=== PATIENT | male | born 1950 | race African-American/Black ===

== ENCOUNTER 2020-04-08 10:01 | Inpatient (IN) ==
[2020-04-08 10:24] LABS: Basophils % 0.3 % (0.0-0.8); Eosinophils # 0.2 10*3/uL (0.0-0.87); Eosinophils % 2.1 % (0.00-10.9); Hematocrit 33.2 VOL% (42.0-52.0); Hemoglobin 11.1 GM/DL (14.0-18.0); Immature Granulocytes % 0.5 %; Immature Granulocytes Absolute 0.06 #; Lymphocytes # 1.8 10*3/uL (1.4-4.0); Lymphocytes % 15.8 % (21.2-54.2); Mean Corpuscular HGB Conc 33.4 GM/DL (32-36); Mean Corpuscular Volume 78.9 FL (87-102); Mean Platelet Volume 10.7 FL (9.6-12.0); Monocytes % 12.7 % (1.7-12.7); Neutrophils % 68.6 % (38.7-73.9); Platelet Count 167 T/CUMM (130-400); Red Blood Count 4.21 MC/CUMM (3.8-5.5); Red Cell Distribution Width 14.6 % (9.3-17.3); White Blood Count 11.5 T/CUMM (4-12)
[2020-04-08 10:45] LABS: Albumin 3.3 G/DL (3.4-5.0); Calcium 9.1 MG/DL (8.5-10.1); Osmolality,Calculated 284.7 MOS/KG (273-304); Total Protein 7.6 G/DL (6.4-8.3)
[2020-04-08] MEDS ORDERED: PIPERACILLIN/TAZOBACTAM 3,375 MG in SODIUM CHLORIDE 0.9% 100 ML IV STA (11:40)
[2020-04-08] MEDS ORDERED: ALBUTEROL 2.5 MG/3 ML NEB RESP TX PRN (13:47)
[2020-04-08] MEDS ORDERED: BENZONATATE 100 MG CAPSULE PO SCH (15:00)
[2020-04-08] MEDS ORDERED: GLUCAGON 1 MG VIAL IM PRN (15:34)
[2020-04-08] MEDS ORDERED: DEXTROSE 50% 25 GM/50 ML VIAL IV PRN (15:34)
[2020-04-08] MEDS: cefTRIAXone 1,000 MG in SYRINGE 1 EACH IV SCH (15:53)
[2020-04-08] MEDS: methylPREDNISolone SOD SUC 40 MG/1 ML VIAL IV SCH ×2 (15:59→23:55)
[2020-04-08 16:29] LABS: Troponin I 0.043 NG/ML (0.00-0.045)
[2020-04-08] MEDS: carvediloL 25 MG TABLET PO SCH (17:07)
[2020-04-08] MEDS: AZITHROMYCIN INJ 500 MG in SODIUM CHLORIDE 0.9% 250 ML IV SCH (17:08)
[2020-04-08] MEDS ORDERED: NITROGLYCERIN SL 0.4 MG TABLET SL ONE (18:06)
[2020-04-08] MEDS: NITROGLYCERIN SL 0.4 MG TABLET SL PRN ×2 (18:07→18:17)
[2020-04-08] MEDS ORDERED: ASPIRIN EC 325 MG TABLET PO ONE (18:07)
[2020-04-08] MEDS ORDERED: ASPIRIN CHEW 81 MG TABLET PO ONE (18:11)
[2020-04-08] MEDS ORDERED: MORPHINE 4 MG/1 ML VIAL IV PRN (18:11)
[2020-04-08] MEDS: ALBUTEROL/IPRATROPIUM 3 ML NEB RESP TX SCH (18:15)
[2020-04-08] MEDS ORDERED: ACETAMINOPHEN 325 MG TABLET PO PRN (18:41)
[2020-04-08] MEDS ORDERED: ONDANSETRON 4 MG/2 ML VIAL IV PRN (18:41)
[2020-04-08 18:54] LABS: Troponin I 0.026 NG/ML (0.00-0.045)
[2020-04-08] MEDS ORDERED: METOPROLOL TARTRATE 5 MG/5 ML VIAL IV ONE (18:55)
[2020-04-08 18:58] LABS: ABG Base Excess -4.9 MMOL/L (-2.5-2.5); ABG HCO3 20.3 MMOL/L (20-26); ABG Oxygen Saturation 96.8 % (95-100); ABG PCO2 35.8 MM HG (35-48); ABG PH 7.355 (7.35-7.45); ABG PO2 90.8 MM HG (80-95); ABG TCO2 17.9 MMOL/L (23-27); Allen Test Positive; Pt O2 Delivery Device BIPAP
[2020-04-08] MEDS ORDERED: ENOXAPARIN 40 MG/0.4 ML SYRINGE SUBCUT SCH (19:00)
[2020-04-08] MEDS ORDERED: CLOPIDOGREL 300 MG TABLET PO ONE (19:01)
[2020-04-08 19:07] LABS: Ferritin 241.4 ng/ml (26-388)
[2020-04-08] MEDS ORDERED: ENOXAPARIN 100 MG/ML SYRINGE SUBCUT SCH (19:30)
[2020-04-08 19:51] LABS: Bilirubin,Urine Negative (Negative); Blood, Urine Negative (Negative); Glucose,Urine (UA) Negative (Negative); Ketones,Urine Negative (Negative); Nitrite,Urine Negative (Negative); Protein,Urine Negative; RBC,Urine 1 /HPF (0-4); Urine Appearance CLEAR (Clear); Urine Color Yellow (Yellow); Urine Specific Gravity 1.008 (1.001-1.035); Urine Urobilinogen < 2.0 EU/DL (0.2-1.0); WBC,Urine <1 /HPF (0-6)
[2020-04-08] MEDS ORDERED: TERAZOSIN 1 MG CAPSULE PO SCH (21:00)
[2020-04-08] MEDS ORDERED: ATORVASTATIN 40 MG TABLET PO SCH (21:00)
[2020-04-08] MEDS ORDERED: FAMOTIDINE 20 MG TABLET PO SCH (21:00)
[2020-04-08] MEDS ORDERED: TERAZOSIN 2 MG CAPSULE PO SCH (21:00)
[2020-04-08] MEDS: RANOLAZINE 500 MG TABLET PO SCH (21:26)
[2020-04-08] MEDS: ATORVASTATIN 80 MG TABLET PO SCH (21:26)
[2020-04-08 22:41] LABS: Troponin I 0.495 NG/ML (0.00-0.045)
[2020-04-09] MEDS: INSULIN LISPRO 100 UNIT/ML SUBCUT SCH ×5 (00:40→23:59)
[2020-04-09] MEDS: ALBUTEROL/IPRATROPIUM 3 ML NEB RESP TX SCH ×4 (01:09→19:17)
[2020-04-09 05:26] LABS: Basophils % 0.1 % (0.0-0.8); Hematocrit 32.1 VOL% (42.0-52.0); Hemoglobin 10.7 GM/DL (14.0-18.0); Immature Granulocytes % 0.4 %; Immature Granulocytes Absolute 0.04 #; Lymphocytes # 0.9 10*3/uL (1.4-4.0); Mean Corpuscular HGB Conc 33.3 GM/DL (32-36); Mean Corpuscular Volume 78.9 FL (87-102); Mean Platelet Volume 12.2 FL (9.6-12.0); Monocytes % 1.7 % (1.7-12.7); Neutrophils % 87.8 % (38.7-73.9); Platelet Count 179 T/CUMM (130-400); Red Blood Count 4.07 MC/CUMM (3.8-5.5); Red Cell Distribution Width 14.5 % (9.3-17.3); White Blood Count 9.2 T/CUMM (4-12)
[2020-04-09 05:50] LABS: Albumin 2.6 G/DL (3.4-5.0); Bilirubin,Total 0.7 MG/DL (0.2-1.0); Calcium 9.2 MG/DL (8.5-10.1); Osmolality,Calculated 282.2 MOS/KG (273-304); Total Protein 7.7 G/DL (6.4-8.3)
[2020-04-09 05:55] LABS: Risk Ratio 2.54
[2020-04-09] MEDS: methylPREDNISolone SOD SUC 40 MG/1 ML VIAL IV SCH ×3 (06:04→22:23)
[2020-04-09] MEDS: carvediloL 25 MG TABLET PO SCH ×2 (08:56→16:03)
[2020-04-09] MEDS: FAMOTIDINE 20 MG TABLET PO SCH (08:57)
[2020-04-09] MEDS: ASPIRIN EC 81 MG TABLET PO SCH (08:57)
[2020-04-09] MEDS: ISOSORBIDE MONONITRATE 30 MG TABLET PO SCH (08:57)
[2020-04-09] MEDS: CLOPIDOGREL 75 MG TABLET PO SCH (08:57)
[2020-04-09] MEDS: allopurinoL 100 MG TABLET PO SCH (08:58)
[2020-04-09] MEDS ORDERED: glyBURIDE 5 MG TABLET PO SCH (09:00)
[2020-04-09] MEDS ORDERED: sitaGLIPtin 100 MG TABLET PO SCH (09:00)
[2020-04-09] MEDS: RANOLAZINE 500 MG TABLET PO SCH ×2 (10:22→21:40)
[2020-04-09] MEDS: cilostazoL 50 MG TABLET PO SCH (10:22)
[2020-04-09] MEDS ORDERED: FUROSEMIDE 40 MG TABLET PO ONE (11:09)
[2020-04-09] MEDS: cefTRIAXone 1,000 MG in SYRINGE 1 EACH IV SCH (16:03)
[2020-04-09] MEDS: AZITHROMYCIN INJ 500 MG in SODIUM CHLORIDE 0.9% 250 ML IV SCH (16:10)
[2020-04-09] MEDS: TERAZOSIN 1 MG CAPSULE PO SCH (21:40)
[2020-04-09] MEDS: ATORVASTATIN 80 MG TABLET PO SCH (21:41)
[2020-04-10] MEDS: ALBUTEROL/IPRATROPIUM 3 ML NEB RESP TX SCH ×4 (00:38→19:37)
[2020-04-10 05:14] LABS: Basophils % 0.1 % (0.0-0.8); Hematocrit 29.4 VOL% (42.0-52.0); Hemoglobin 9.9 GM/DL (14.0-18.0); Immature Granulocytes % 0.7 %; Immature Granulocytes Absolute 0.13 #; Lymphocytes % 5.7 % (21.2-54.2); Mean Corpuscular HGB Conc 33.7 GM/DL (32-36); Mean Corpuscular Volume 78.4 FL (87-102); Mean Platelet Volume 11.9 FL (9.6-12.0); Monocytes % 3.7 % (1.7-12.7); Neutrophils % 89.8 % (38.7-73.9); Platelet Count 203 T/CUMM (130-400); Red Blood Count 3.75 MC/CUMM (3.8-5.5); Red Cell Distribution Width 14.4 % (9.3-17.3); White Blood Count 17.4 T/CUMM (4-12)
[2020-04-10 05:34] LABS: Albumin 2.6 G/DL (3.4-5.0); Bilirubin,Total 0.4 MG/DL (0.2-1.0); Osmolality,Calculated 289.4 MOS/KG (273-304); Total Protein 7.3 G/DL (6.4-8.3)
[2020-04-10 05:38] LABS: Osmolality,Calculated 289.4 MOS/KG (273-304)
[2020-04-10] MEDS: INSULIN LISPRO 100 UNIT/ML SUBCUT SCH ×3 (05:57→17:18)
[2020-04-10] MEDS: methylPREDNISolone SOD SUC 40 MG/1 ML VIAL IV SCH ×3 (06:01→23:27)
[2020-04-10] MEDS: CLOPIDOGREL 75 MG TABLET PO SCH (08:27)
[2020-04-10] MEDS: allopurinoL 100 MG TABLET PO SCH (08:27)
[2020-04-10] MEDS: FAMOTIDINE 20 MG TABLET PO SCH (08:28)
[2020-04-10] MEDS: FUROSEMIDE 40 MG TABLET PO SCH (08:28)
[2020-04-10] MEDS: ISOSORBIDE MONONITRATE 30 MG TABLET PO SCH (08:28)
[2020-04-10] MEDS: AZITHROMYCIN 250 MG TABLET PO SCH (08:28)
[2020-04-10] MEDS: carvediloL 25 MG TABLET PO SCH ×2 (08:29→16:01)
[2020-04-10] MEDS: RANOLAZINE 500 MG TABLET PO SCH ×2 (08:29→20:37)
[2020-04-10] MEDS: ASPIRIN EC 81 MG TABLET PO SCH (08:29)
[2020-04-10] MEDS: cilostazoL 50 MG TABLET PO SCH (08:29)
[2020-04-10] MEDS: cefTRIAXone 1,000 MG in SYRINGE 1 EACH IV SCH (15:58)
[2020-04-10] MEDS: TERAZOSIN 1 MG CAPSULE PO SCH (20:37)
[2020-04-10] MEDS: ATORVASTATIN 80 MG TABLET PO SCH (20:37)
[2020-04-11] MEDS: INSULIN LISPRO 100 UNIT/ML SUBCUT SCH ×4 (00:30→17:24)
[2020-04-11] MEDS: ALBUTEROL/IPRATROPIUM 3 ML NEB RESP TX SCH ×4 (02:42→19:26)
[2020-04-11 05:47] LABS: Basophils % 0.1 % (0.0-0.8); Hematocrit 31.3 VOL% (42.0-52.0); Hemoglobin 10.4 GM/DL (14.0-18.0); Immature Granulocytes % 0.8 %; Immature Granulocytes Absolute 0.11 #; Lymphocytes # 0.6 10*3/uL (1.4-4.0); Lymphocytes % 4.7 % (21.2-54.2); Mean Corpuscular HGB Conc 33.2 GM/DL (32-36); Mean Corpuscular Volume 77.9 FL (87-102); Mean Platelet Volume 12.2 FL (9.6-12.0); Monocytes % 3.3 % (1.7-12.7); Neutrophils % 91.1 % (38.7-73.9); Platelet Count 217 T/CUMM (130-400); Red Blood Count 4.02 MC/CUMM (3.8-5.5); Red Cell Distribution Width 14.4 % (9.3-17.3); White Blood Count 13.4 T/CUMM (4-12)
[2020-04-11] MEDS: methylPREDNISolone SOD SUC 40 MG/1 ML VIAL IV SCH ×2 (05:50→14:48)
[2020-04-11 06:08] LABS: Alanine Aminotransferase 19 U/L (16-61); Albumin 2.7 G/DL (3.4-5.0); Alkaline Phosphatase 121 U/L (45-117); Aspartate Amino Transferase 16 U/L (0-37); Bilirubin,Total < 0.39 MG/DL (0.2-1.0); Blood Urea Nitrogen 88 MG/DL (7-18); Calcium 8.6 MG/DL (8.5-10.1); Estimated Glom Filtration Rate 30 ML/MIN; Glucose 213 MG/DL (74-106); Osmolality,Calculated 302.1 MOS/KG (273-304); Total Protein 7.3 G/DL (6.4-8.3)
[2020-04-11 06:09] LABS: Calcium 8.6 MG/DL (8.5-10.1); Osmolality,Calculated 299.2 MOS/KG (273-304)
[2020-04-11 07:19] LABS: Lymphocytes 6 % (20-55); Segmented Neutrophils 89 % (50-85); Total Cells Counted 100
[2020-04-11 07:20] LABS: Acanthocytes Few; Hypochromasia 1+; Microcytosis Slight
[2020-04-11 07:21] LABS: Platelet Estimate Normal
[2020-04-11] MEDS: CLOPIDOGREL 75 MG TABLET PO SCH (10:03)
[2020-04-11] MEDS: FAMOTIDINE 20 MG TABLET PO SCH (10:03)
[2020-04-11] MEDS: ISOSORBIDE MONONITRATE 30 MG TABLET PO SCH (10:03)
[2020-04-11] MEDS: FUROSEMIDE 40 MG TABLET PO SCH (10:03)
[2020-04-11] MEDS: AZITHROMYCIN 250 MG TABLET PO SCH (10:03)
[2020-04-11] MEDS: ASPIRIN EC 81 MG TABLET PO SCH (10:03)
[2020-04-11] MEDS: allopurinoL 100 MG TABLET PO SCH (10:03)
[2020-04-11] MEDS: carvediloL 25 MG TABLET PO SCH ×2 (10:03→17:24)
[2020-04-11] MEDS: RANOLAZINE 500 MG TABLET PO SCH ×2 (10:03→21:07)
[2020-04-11] MEDS: cilostazoL 50 MG TABLET PO SCH (10:03)
[2020-04-11] MEDS: cefTRIAXone 1,000 MG in SYRINGE 1 EACH IV SCH (14:48)
[2020-04-11] MEDS: ATORVASTATIN 80 MG TABLET PO SCH (21:07)
[2020-04-11] MEDS: TERAZOSIN 1 MG CAPSULE PO SCH (21:08)
[2020-04-12] MEDS: ALBUTEROL/IPRATROPIUM 3 ML NEB RESP TX SCH ×4 (00:04→19:00)
[2020-04-12] MEDS: methylPREDNISolone SOD SUC 40 MG/1 ML VIAL IV SCH ×2 (00:08→07:17)
[2020-04-12] MEDS: INSULIN LISPRO 100 UNIT/ML SUBCUT SCH ×4 (00:08→17:26)
[2020-04-12 06:06] LABS: Basophils % 0.1 % (0.0-0.8); Hematocrit 30.4 VOL% (42.0-52.0); Hemoglobin 10.1 GM/DL (14.0-18.0); Immature Granulocytes % 1.1 %; Immature Granulocytes Absolute 0.12 #; Lymphocytes # 0.6 10*3/uL (1.4-4.0); Lymphocytes % 5.6 % (21.2-54.2); Mean Corpuscular HGB Conc 33.2 GM/DL (32-36); Mean Corpuscular Volume 77.4 FL (87-102); Mean Platelet Volume 12.1 FL (9.6-12.0); Monocytes % 2.7 % (1.7-12.7); Neutrophils % 90.5 % (38.7-73.9); Platelet Count 215 T/CUMM (130-400); Red Blood Count 3.93 MC/CUMM (3.8-5.5); Red Cell Distribution Width 14.1 % (9.3-17.3); White Blood Count 11.1 T/CUMM (4-12)
[2020-04-12 06:27] LABS: Calcium 8.5 MG/DL (8.5-10.1); Osmolality,Calculated 296.4 MOS/KG (273-304)
[2020-04-12 06:34] LABS: Albumin 2.7 G/DL (3.4-5.0); Bilirubin,Total 0.8 MG/DL (0.2-1.0); Calcium 8.6 MG/DL (8.5-10.1); Osmolality,Calculated 297.4 MOS/KG (273-304); Total Protein 7.1 G/DL (6.4-8.3)
[2020-04-12] MEDS: RANOLAZINE 500 MG TABLET PO SCH ×2 (08:25→20:32)
[2020-04-12] MEDS: carvediloL 25 MG TABLET PO SCH ×2 (08:27→17:26)
[2020-04-12] MEDS: FAMOTIDINE 20 MG TABLET PO SCH (08:27)
[2020-04-12] MEDS: FUROSEMIDE 40 MG TABLET PO SCH (08:28)
[2020-04-12] MEDS: ISOSORBIDE MONONITRATE 30 MG TABLET PO SCH (08:28)
[2020-04-12] MEDS: CLOPIDOGREL 75 MG TABLET PO SCH (08:29)
[2020-04-12] MEDS: allopurinoL 100 MG TABLET PO SCH (08:29)
[2020-04-12] MEDS: AZITHROMYCIN 250 MG TABLET PO SCH (08:29)
[2020-04-12] MEDS: ASPIRIN EC 81 MG TABLET PO SCH (08:30)
[2020-04-12] MEDS: cilostazoL 50 MG TABLET PO SCH (08:30)
[2020-04-12] MEDS ORDERED: ALUM/MAG/SIMETH/LIDO VISC 1:1 30 ML BOTTLE PO ONE (10:32)
[2020-04-12 11:52] LABS: Immature Granulocytes % 2.1 %; Immature Granulocytes Absolute 0.24 #; Lymphocytes # 0.7 10*3/uL (1.4-4.0); Lymphocytes % 5.6 % (21.2-54.2); Mean Corpuscular HGB Conc 33.3 GM/DL (32-36); Mean Corpuscular Volume 78.3 FL (87-102); Mean Platelet Volume 11.4 FL (9.6-12.0); Monocytes % 3.3 % (1.7-12.7); Platelet Count 222 T/CUMM (130-400); Red Blood Count 3.83 MC/CUMM (3.8-5.5); Red Cell Distribution Width 14.4 % (9.3-17.3); White Blood Count 11.7 T/CUMM (4-12)
[2020-04-12 12:19] LABS: Calcium 8.4 MG/DL (8.5-10.1); Osmolality,Calculated 295.7 MOS/KG (273-304)
[2020-04-12] MEDS: methylPREDNISolone 4 MG TABLET PO SCH ×3 (13:39→20:37)
[2020-04-12] MEDS: cefTRIAXone 1,000 MG in SYRINGE 1 EACH IV SCH (15:12)
[2020-04-12] MEDS: ATORVASTATIN 80 MG TABLET PO SCH (20:32)
[2020-04-12] MEDS: TERAZOSIN 1 MG CAPSULE PO SCH (20:33)
[2020-04-12] MEDS: INSULIN GLARGINE 100 UNIT/ML SUBCUT SCH (20:33)
[2020-04-13] MEDS: ALBUTEROL/IPRATROPIUM 3 ML NEB RESP TX SCH ×4 (00:18→20:38)
[2020-04-13] MEDS: INSULIN LISPRO 100 UNIT/ML SUBCUT SCH ×4 (01:50→17:21)
[2020-04-13 05:45] LABS: Basophils % 0.1 % (0.0-0.8); Hematocrit 30.1 VOL% (42.0-52.0); Hemoglobin 10.1 GM/DL (14.0-18.0); Immature Granulocytes % 1.9 %; Immature Granulocytes Absolute 0.23 #; Lymphocytes # 0.9 10*3/uL (1.4-4.0); Lymphocytes % 7.3 % (21.2-54.2); Mean Corpuscular HGB Conc 33.6 GM/DL (32-36); Mean Corpuscular Volume 77.8 FL (87-102); Mean Platelet Volume 11.7 FL (9.6-12.0); Monocytes % 7.7 % (1.7-12.7); Platelet Count 218 T/CUMM (130-400); Red Blood Count 3.87 MC/CUMM (3.8-5.5); Red Cell Distribution Width 14.1 % (9.3-17.3)
[2020-04-13 06:03] LABS: Alanine Aminotransferase 50 U/L (16-61); Albumin 2.7 G/DL (3.4-5.0); Alkaline Phosphatase 106 U/L (45-117); Aspartate Amino Transferase 26 U/L (0-37); Bilirubin,Total < 0.39 MG/DL (0.2-1.0); Blood Urea Nitrogen 83 MG/DL (7-18); Calcium 8.4 MG/DL (8.5-10.1); Estimated Glom Filtration Rate 29 ML/MIN; Glucose 194 MG/DL (74-106); Osmolality,Calculated 295.4 MOS/KG (273-304); Total Protein 6.9 G/DL (6.4-8.3)
[2020-04-13 06:08] LABS: Calcium 8.5 MG/DL (8.5-10.1); Osmolality,Calculated 297.2 MOS/KG (273-304)
[2020-04-13] MEDS: allopurinoL 100 MG TABLET PO SCH (08:50)
[2020-04-13] MEDS: FAMOTIDINE 20 MG TABLET PO SCH (08:51)
[2020-04-13] MEDS: RANOLAZINE 500 MG TABLET PO SCH ×2 (08:51→20:44)
[2020-04-13] MEDS: methylPREDNISolone 4 MG TABLET PO SCH ×4 (08:51→20:44)
[2020-04-13] MEDS: CLOPIDOGREL 75 MG TABLET PO SCH (08:52)
[2020-04-13] MEDS: ASPIRIN EC 81 MG TABLET PO SCH (08:52)
[2020-04-13] MEDS: cilostazoL 50 MG TABLET PO SCH (08:52)
[2020-04-13] MEDS: FUROSEMIDE 40 MG TABLET PO SCH (08:53)
[2020-04-13] MEDS: carvediloL 25 MG TABLET PO SCH ×2 (08:54→17:22)
[2020-04-13] MEDS: AZITHROMYCIN 250 MG TABLET PO SCH (08:54)
[2020-04-13] MEDS: ISOSORBIDE MONONITRATE 30 MG TABLET PO SCH (08:54)
[2020-04-13] MEDS ORDERED: amLODIPine 2.5 MG TABLET PO SCH (09:00)
[2020-04-13] MEDS: cefTRIAXone 1,000 MG in SYRINGE 1 EACH IV SCH (15:41)
[2020-04-13] MEDS: LACTOBACILLUS ACIDOPHILUS/BULGARICUS CAPLET PO SCH (17:22)
[2020-04-13] MEDS: TERAZOSIN 1 MG CAPSULE PO SCH (20:44)
[2020-04-13] MEDS: ATORVASTATIN 80 MG TABLET PO SCH (20:44)
[2020-04-13] MEDS: INSULIN GLARGINE 100 UNIT/ML SUBCUT SCH (20:45)
[2020-04-14] MEDS: INSULIN LISPRO 100 UNIT/ML SUBCUT SCH ×2 (00:29→05:51)
[2020-04-14] MEDS: ALBUTEROL/IPRATROPIUM 3 ML NEB RESP TX SCH ×2 (02:12→07:23)
[2020-04-14 05:30] LABS: Basophils % 0.2 % (0.0-0.8); Hematocrit 29.2 VOL% (42.0-52.0); Immature Granulocytes % 2.8 %; Immature Granulocytes Absolute 0.36 #; Lymphocytes # 0.9 10*3/uL (1.4-4.0); Lymphocytes % 6.8 % (21.2-54.2); Mean Corpuscular HGB Conc 34.2 GM/DL (32-36); Mean Corpuscular Volume 76.4 FL (87-102); Mean Platelet Volume 11.6 FL (9.6-12.0); Monocytes % 7.4 % (1.7-12.7); Neutrophils % 82.8 % (38.7-73.9); Platelet Count 224 T/CUMM (130-400); Red Blood Count 3.82 MC/CUMM (3.8-5.5); Red Cell Distribution Width 13.9 % (9.3-17.3); White Blood Count 12.9 T/CUMM (4-12)
[2020-04-14 06:06] LABS: Calcium 8.3 MG/DL (8.5-10.1); Osmolality,Calculated 295.2 MOS/KG (273-304)
[2020-04-14] MEDS ORDERED: TERAZOSIN 5 MG CAPSULE PO SCH (08:20)
[2020-04-14] MEDS: RANOLAZINE 500 MG TABLET PO SCH (08:45)
[2020-04-14] MEDS: ISOSORBIDE MONONITRATE 30 MG TABLET PO SCH (08:45)
[2020-04-14] MEDS: methylPREDNISolone 4 MG TABLET PO SCH (08:45)
[2020-04-14] MEDS: ASPIRIN EC 81 MG TABLET PO SCH (08:45)
[2020-04-14] MEDS: cilostazoL 50 MG TABLET PO SCH (08:45)
[2020-04-14] MEDS: FUROSEMIDE 40 MG TABLET PO SCH (08:45)
[2020-04-14] MEDS: allopurinoL 100 MG TABLET PO SCH (08:45)
[2020-04-14] MEDS: LACTOBACILLUS ACIDOPHILUS/BULGARICUS CAPLET PO SCH (08:46)
[2020-04-14] MEDS: FAMOTIDINE 20 MG TABLET PO SCH (08:46)
[2020-04-14] MEDS: CLOPIDOGREL 75 MG TABLET PO SCH (08:46)
[2020-04-14] MEDS: carvediloL 25 MG TABLET PO SCH (08:46)
[2020-04-14] MEDS: AZITHROMYCIN 250 MG TABLET PO SCH (08:46)
[2020-04-14 09:30] VITALS: BP 160/64
== END 2020-04-14 11:40 | disposition home health service (06) | DRG 193 ==
LOC: N.ED 10:01 → SUATTDRO 11:47 → N.EDINP 11:47 → N.4E 14:22 → N.ICU 18:42 → N.TELEN 04-09 13:50
PROVIDERS: ADMIT Internal Medicine; ATTEND Hospitalist

== ENCOUNTER 2020-04-17 09:26 | Inpatient (IN) ==
[2020-04-17] MEDS ORDERED: FUROSEMIDE 40 MG/4 ML VIAL IV STA (10:03)
[2020-04-17] MEDS ORDERED: ALBUTEROL 2.5 MG/3 ML NEB RESP TX STA (10:03)
[2020-04-17 10:28] LABS: Basophils # 0.1 10*3/uL (0.0-0.2); Basophils % 0.2 % (0.0-0.8); Hematocrit 30.8 VOL% (42.0-52.0); Hemoglobin 10.2 GM/DL (14.0-18.0); Immature Granulocytes % 4.6 %; Immature Granulocytes Absolute 1.25 #; Lymphocytes # 1.5 10*3/uL (1.4-4.0); Lymphocytes % 5.4 % (21.2-54.2); Mean Corpuscular HGB Conc 33.1 GM/DL (32-36); Mean Corpuscular Volume 78.4 FL (87-102); Mean Platelet Volume 11.5 FL (9.6-12.0); Monocytes % 5.9 % (1.7-12.7); Neutrophils % 83.9 % (38.7-73.9); Platelet Count 264 T/CUMM (130-400); Red Blood Count 3.93 MC/CUMM (3.8-5.5); Red Cell Distribution Width 14.9 % (9.3-17.3); White Blood Count 27.2 T/CUMM (4-12)
[2020-04-17 10:37] LABS: PT Patient Result 10.7 SECS (9.8-11.9)
[2020-04-17] MEDS ORDERED: ETOMIDATE 20 MG/10 ML VIAL IV ONE (10:43)
[2020-04-17] MEDS ORDERED: ROCURONIUM 100 MG/10 ML VIAL IV ONE (10:44)
[2020-04-17 10:45] LABS: Band Neutrophils 2 % (0-10); Lymphocytes 4 % (20-55); Platelet Estimate Adequate; Segmented Neutrophils 88 % (50-85); Total Cells Counted 100
[2020-04-17 10:46] LABS: Hypochromasia 1+
[2020-04-17 10:50] LABS: Albumin 2.7 G/DL (3.4-5.0); Bilirubin,Total 0.8 MG/DL (0.2-1.0); Calcium 8.4 MG/DL (8.5-10.1); Osmolality,Calculated 297.7 MOS/KG (273-304); Total Protein 7.3 G/DL (6.4-8.3)
[2020-04-17] MEDS ORDERED: PIPERACILLIN/TAZOBACTAM 3,375 MG in SODIUM CHLORIDE 0.9% 100 ML IV STA (10:54)
[2020-04-17 10:56] LABS: Ferritin 506.1 ng/ml (26-388)
[2020-04-17 11:01] LABS: ABG Base Excess -8.5 MMOL/L (-2.5-2.5); ABG HCO3 17.4 MMOL/L (20-26); ABG Oxygen Saturation 92.3 % (95-100); ABG PCO2 36.6 MM HG (35-48); ABG PH 7.286 (7.35-7.45); ABG PO2 73.5 MM HG (80-95); ABG TCO2 16.2 MMOL/L (23-27); Allen Test Positive; Pt O2 Delivery Device Ventilator
[2020-04-17] MEDS ORDERED: PIPERACILLIN/TAZOBACTAM 3,375 MG VIAL IV ONE (11:04)
[2020-04-17 11:07] LABS: Bilirubin,Urine Negative (Negative); Blood, Urine Negative (Negative); Glucose,Urine (UA) 50 mg/dL (Negative); Hyaline Casts,Urine 10 /LPF (0-3); Ketones,Urine Negative (Negative); Nitrite,Urine Negative (Negative); Protein,Urine Negative; RBC,Urine 2 /HPF (0-4); Squamous Epithelial Cell,Urine Occasional /HPF (0-10); Urine Appearance CLEAR (Clear); Urine Color Yellow (Yellow); Urine Specific Gravity 1.014 (1.001-1.035); Urine Urobilinogen < 2.0 EU/DL (0.2-1.0)
[2020-04-17] MEDS ORDERED: LEVOFLOXACIN 750 MG TABLET PER TUBE SCH (12:00)
[2020-04-17] MEDS: INSULIN REGULAR 100 UNIT/ML SUBCUT SCH ×3 (12:22→20:04)
[2020-04-17] MEDS: LINEZOLID INJ 600 MG in PREMIX 1 EACH IV SCH (12:44)
[2020-04-17] MEDS ORDERED: ALBUTEROL 2.5 MG/3 ML NEB RESP TX PRN (13:09)
[2020-04-17] MEDS ORDERED: ONDANSETRON 4 MG/2 ML VIAL IV PRN (13:09)
[2020-04-17] MEDS ORDERED: MORPHINE 4 MG/1 ML VIAL IV PRN (13:09)
[2020-04-17] MEDS: PANTOPRAZOLE 40 MG VIAL IV SCH (13:55)
[2020-04-17] MEDS: ENOXAPARIN 30 MG/0.3 ML SYRINGE SUBCUT SCH (13:55)
[2020-04-17] MEDS: MIDAZOLAM 100 MG in SODIUM CHLORIDE 0.9% 80 ML IV PRN (14:00)
[2020-04-17] MEDS ORDERED: MIDAZOLAM 2 MG/2 ML VIAL IV ONE (14:15)
[2020-04-17] MEDS: amLODIPine 10 MG TABLET PER TUBE SCH (14:49)
[2020-04-17] MEDS: allopurinoL 100 MG TABLET PO SCH (14:49)
[2020-04-17] MEDS: ASPIRIN CHEW 81 MG TABLET PO SCH (14:49)
[2020-04-17] MEDS ORDERED: NOREPINEPHRINE 8 MG in SODIUM CHLORIDE 0.9% 242 ML IV PRN (15:18)
[2020-04-17] MEDS ORDERED: NOREPINEPHRINE 4 MG/4 ML VIAL IV ONE (15:20)
[2020-04-17] MEDS: MEROPENEM 500 MG in SODIUM CHLORIDE 0.9% 100 ML IV SCH (15:30)
[2020-04-17] MEDS: NITROGLYCERIN 0.4 MG/HR PATCH TRANSDERM SCH (15:49)
[2020-04-17] MEDS: LACTATED RINGERS 1,000 ML IV SCH (15:49)
[2020-04-17] MEDS: FUROSEMIDE 40 MG/4 ML VIAL IV SCH (17:31)
[2020-04-17] MEDS: GABAPENTIN 100 MG CAPSULE PO SCH (20:14)
[2020-04-17] MEDS: ATORVASTATIN 80 MG TABLET PO SCH (20:14)
[2020-04-17] MEDS ORDERED: TERAZOSIN 1 MG CAPSULE PO SCH (21:00)
[2020-04-18] MEDS: INSULIN REGULAR 100 UNIT/ML SUBCUT SCH ×6 (00:23→20:02)
[2020-04-18] MEDS: LINEZOLID INJ 600 MG in PREMIX 1 EACH IV SCH ×2 (00:24→13:07)
[2020-04-18] MEDS: MIDAZOLAM 100 MG in SODIUM CHLORIDE 0.9% 80 ML IV PRN ×2 (00:30→17:41)
[2020-04-18] MEDS: LACTATED RINGERS 1,000 ML IV SCH (01:49)
[2020-04-18] MEDS: MEROPENEM 500 MG in SODIUM CHLORIDE 0.9% 100 ML IV SCH ×2 (02:59→13:08)
[2020-04-18 04:41] LABS: Basophils % 0.1 % (0.0-0.8); Eosinophils # 0.1 10*3/uL (0.0-0.87); Eosinophils % 0.7 % (0.00-10.9); Hematocrit 22.9 VOL% (42.0-52.0); Immature Granulocytes % 4.3 %; Immature Granulocytes Absolute 0.76 #; Lymphocytes # 2.2 10*3/uL (1.4-4.0); Lymphocytes % 12.4 % (21.2-54.2); Mean Corpuscular HGB Conc 33.2 GM/DL (32-36); Mean Corpuscular Volume 78.2 FL (87-102); Mean Platelet Volume 11.1 FL (9.6-12.0); Monocytes % 10.6 % (1.7-12.7); Neutrophils % 71.9 % (38.7-73.9); Platelet Count 224 T/CUMM (130-400); Red Blood Count 2.93 MC/CUMM (3.8-5.5); Red Cell Distribution Width 14.8 % (9.3-17.3); White Blood Count 17.6 T/CUMM (4-12)
[2020-04-18 04:43] LABS: Hemoglobin 7.6 GM/DL (14.0-18.0)
[2020-04-18 04:58] LABS: Lymphocytes 10 % (20-55); Segmented Neutrophils 76 % (50-85); Total Cells Counted 100
[2020-04-18 04:59] LABS: Hypochromasia 2+; Microcytosis 1+; Ovalocytes Slight; Platelet Estimate Adequate
[2020-04-18 05:12] LABS: Calcium 7.8 MG/DL (8.5-10.1); Osmolality,Calculated 294.8 MOS/KG (273-304)
[2020-04-18 05:17] LABS: Ferritin 457.9 ng/ml (26-388)
[2020-04-18 05:26] LABS: ABG Base Excess -2.8 MMOL/L (-2.5-2.5); ABG HCO3 22.1 MMOL/L (20-26); ABG Oxygen Saturation 99.5 % (95-100); ABG PCO2 32.7 MM HG (35-48); ABG PH 7.419 (7.35-7.45); ABG TCO2 19.8 MMOL/L (23-27)
[2020-04-18 05:43] LABS: Risk Ratio 1.87; VLDL CHOLESTEROL 7.8 MG/DL
[2020-04-18] MEDS ORDERED: DEXTROSE 50% 25 GM/50 ML VIAL IV ONE ×2 (07:32→07:40)
[2020-04-18] MEDS: ASPIRIN CHEW 81 MG TABLET PO SCH (08:20)
[2020-04-18] MEDS: FUROSEMIDE 40 MG/4 ML VIAL IV SCH ×2 (08:20→16:23)
[2020-04-18] MEDS: allopurinoL 100 MG TABLET PO SCH (08:20)
[2020-04-18] MEDS: GABAPENTIN 100 MG CAPSULE PO SCH (08:21)
[2020-04-18] MEDS: NITROGLYCERIN 0.4 MG/HR PATCH TRANSDERM SCH (08:22)
[2020-04-18] MEDS: amLODIPine 10 MG TABLET PER TUBE SCH (08:22)
[2020-04-18] MEDS ORDERED: DEXTROSE 50% 25 GM/50 ML VIAL IV PRN (09:10)
[2020-04-18] MEDS ORDERED: GLUCAGON 1 MG VIAL IM PRN (09:10)
[2020-04-18] MEDS: ENOXAPARIN 30 MG/0.3 ML SYRINGE SUBCUT SCH (13:07)
[2020-04-18] MEDS: LEVOFLOXACIN 750 MG TABLET PER TUBE SCH (13:07)
[2020-04-18] MEDS: PANTOPRAZOLE 40 MG VIAL IV SCH (13:08)
[2020-04-18] MEDS: ATORVASTATIN 80 MG TABLET PO SCH (20:12)
[2020-04-18] MEDS: GABAPENTIN 100 MG CAPSULE PER TUBE SCH (20:12)
[2020-04-19] MEDS: INSULIN REGULAR 100 UNIT/ML SUBCUT SCH ×7 (01:29→19:02)
[2020-04-19] MEDS: LINEZOLID INJ 600 MG in PREMIX 1 EACH IV SCH ×2 (01:29→11:45)
[2020-04-19] MEDS: MEROPENEM 500 MG in SODIUM CHLORIDE 0.9% 100 ML IV SCH ×2 (02:47→13:33)
[2020-04-19 03:39] LABS: ABG Base Excess -0.8 MMOL/L (-2.5-2.5); ABG HCO3 23.8 MMOL/L (20-26); ABG Oxygen Saturation 99.2 % (95-100); ABG PCO2 32.2 MM HG (35-48); ABG PH 7.455 (7.35-7.45); ABG TCO2 21.1 MMOL/L (23-27)
[2020-04-19 04:03] LABS: Basophils % 0.2 % (0.0-0.8); Eosinophils # 0.2 10*3/uL (0.0-0.87); Eosinophils % 1.6 % (0.00-10.9); Hematocrit 23.3 VOL% (42.0-52.0); Hemoglobin 7.8 GM/DL (14.0-18.0); Immature Granulocytes % 4.4 %; Immature Granulocytes Absolute 0.55 #; Mean Corpuscular HGB Conc 33.5 GM/DL (32-36); Mean Corpuscular Volume 78.5 FL (87-102); Mean Platelet Volume 12.1 FL (9.6-12.0); Monocytes % 11.1 % (1.7-12.7); Neutrophils % 66.7 % (38.7-73.9); Platelet Count 221 T/CUMM (130-400); Red Blood Count 2.97 MC/CUMM (3.8-5.5); Red Cell Distribution Width 14.9 % (9.3-17.3); White Blood Count 12.5 T/CUMM (4-12)
[2020-04-19 04:19] LABS: Calcium 7.8 MG/DL (8.5-10.1)
[2020-04-19 04:23] LABS: Ferritin 388.4 ng/ml (26-388)
[2020-04-19 04:49] LABS: Band Neutrophils 1 % (0-10); Lymphocytes 19 % (20-55); Metamyelocytes 1 %; Myelocytes 1 %; Segmented Neutrophils 69 % (50-85); Total Cells Counted 100
[2020-04-19 04:51] LABS: Hypochromasia 2+; Platelet Estimate Normal
[2020-04-19 04:52] LABS: Ovalocytes 1+
[2020-04-19] MEDS: FUROSEMIDE 40 MG/4 ML VIAL IV SCH ×2 (07:54→16:09)
[2020-04-19] MEDS: NITROGLYCERIN 0.4 MG/HR PATCH TRANSDERM SCH (08:01)
[2020-04-19] MEDS: ASPIRIN CHEW 81 MG TABLET PO SCH (08:01)
[2020-04-19] MEDS: allopurinoL 100 MG TABLET PER TUBE SCH (08:01)
[2020-04-19] MEDS: GABAPENTIN 100 MG CAPSULE PER TUBE SCH ×2 (08:01→20:54)
[2020-04-19] MEDS: PANTOPRAZOLE 40 MG VIAL IV SCH (12:30)
[2020-04-19] MEDS: ENOXAPARIN 30 MG/0.3 ML SYRINGE SUBCUT SCH (12:30)
[2020-04-19] MEDS: ATORVASTATIN 80 MG TABLET PO SCH (20:55)
[2020-04-20] MEDS: INSULIN REGULAR 100 UNIT/ML SUBCUT SCH ×6 (01:35→20:20)
[2020-04-20] MEDS: MEROPENEM 500 MG in SODIUM CHLORIDE 0.9% 100 ML IV SCH ×2 (02:53→13:01)
[2020-04-20 03:53] LABS: ABG Base Excess 1.1 MMOL/L (-2.5-2.5); ABG HCO3 23.6 MMOL/L (20-26); ABG Oxygen Saturation 98.7 % (95-100); ABG PCO2 29.5 MM HG (35-48); ABG PH 7.521 (7.35-7.45); ABG PO2 175.2 MM HG (80-95); ABG TCO2 24.5 MMOL/L (23-27)
[2020-04-20 04:55] LABS: Basophils % 0.2 % (0.0-0.8); Eosinophils # 0.3 10*3/uL (0.0-0.87); Eosinophils % 2.2 % (0.00-10.9); Hemoglobin 8.3 GM/DL (14.0-18.0); Immature Granulocytes % 3.7 %; Lymphocytes # 2.2 10*3/uL (1.4-4.0); Lymphocytes % 16.3 % (21.2-54.2); Mean Corpuscular HGB Conc 33.2 GM/DL (32-36); Mean Corpuscular Volume 78.6 FL (87-102); Mean Platelet Volume 11.9 FL (9.6-12.0); Monocytes % 11.5 % (1.7-12.7); Neutrophils % 66.1 % (38.7-73.9); Platelet Count 230 T/CUMM (130-400); Red Blood Count 3.18 MC/CUMM (3.8-5.5); Red Cell Distribution Width 14.9 % (9.3-17.3); White Blood Count 13.4 T/CUMM (4-12)
[2020-04-20 05:17] LABS: Calcium 8.5 MG/DL (8.5-10.1); Osmolality,Calculated 300.4 MOS/KG (273-304)
[2020-04-20 05:28] LABS: Ferritin 416.1 ng/ml (26-388)
[2020-04-20] MEDS: FUROSEMIDE 40 MG/4 ML VIAL IV SCH ×2 (08:11→15:27)
[2020-04-20] MEDS: ASPIRIN CHEW 81 MG TABLET PO SCH (08:12)
[2020-04-20] MEDS: allopurinoL 100 MG TABLET PER TUBE SCH (08:12)
[2020-04-20] MEDS: GABAPENTIN 100 MG CAPSULE PER TUBE SCH ×2 (08:12→20:20)
[2020-04-20] MEDS: NITROGLYCERIN 0.4 MG/HR PATCH TRANSDERM SCH (08:12)
[2020-04-20] MEDS: ENOXAPARIN 30 MG/0.3 ML SYRINGE SUBCUT SCH (12:30)
[2020-04-20] MEDS: PANTOPRAZOLE 40 MG VIAL IV SCH (12:30)
[2020-04-20] MEDS: carvediloL 25 MG TABLET PO SCH ×2 (12:31→20:20)
[2020-04-20] MEDS: LEVOFLOXACIN 750 MG TABLET PER TUBE SCH (12:31)
[2020-04-20] MEDS: ATORVASTATIN 80 MG TABLET PO SCH (20:20)
[2020-04-21] MEDS: MEROPENEM 500 MG in SODIUM CHLORIDE 0.9% 100 ML IV SCH ×2 (02:57→14:55)
[2020-04-21] MEDS: INSULIN REGULAR 100 UNIT/ML SUBCUT SCH ×6 (02:57→20:50)
[2020-04-21 03:11] LABS: ABG Base Excess 4.1 MMOL/L (-2.5-2.5); ABG HCO3 26.9 MMOL/L (20-26); ABG Oxygen Saturation 94.8 % (95-100); ABG PCO2 33.7 MM HG (35-48); ABG PO2 69.9 MM HG (80-95); ABG TCO2 27.9 MMOL/L (23-27); Allen Test Positive; Pt O2 Delivery Device Room Air
[2020-04-21 04:37] LABS: Basophils % 0.1 % (0.0-0.8); Eosinophils # 0.4 10*3/uL (0.0-0.87); Eosinophils % 2.7 % (0.00-10.9); Hematocrit 24.2 VOL% (42.0-52.0); Hemoglobin 8.2 GM/DL (14.0-18.0); Immature Granulocytes % 2.1 %; Immature Granulocytes Absolute 0.29 #; Lymphocytes # 2.1 10*3/uL (1.4-4.0); Lymphocytes % 15.4 % (21.2-54.2); Mean Corpuscular HGB Conc 33.9 GM/DL (32-36); Mean Corpuscular Volume 78.3 FL (87-102); Mean Platelet Volume 11.7 FL (9.6-12.0); Monocytes % 10.4 % (1.7-12.7); Neutrophils % 69.3 % (38.7-73.9); Platelet Count 223 T/CUMM (130-400); Red Blood Count 3.09 MC/CUMM (3.8-5.5); Red Cell Distribution Width 14.9 % (9.3-17.3); White Blood Count 13.8 T/CUMM (4-12)
[2020-04-21 04:45] LABS: Calcium 8.3 MG/DL (8.5-10.1); Calcium 8.4 MG/DL (8.5-10.1); Osmolality,Calculated 296.1 MOS/KG (273-304)
[2020-04-21] MEDS: ASPIRIN CHEW 81 MG TABLET PO SCH (08:39)
[2020-04-21] MEDS: carvediloL 25 MG TABLET PO SCH ×2 (08:40→20:50)
[2020-04-21] MEDS: RANOLAZINE 500 MG TABLET PO SCH ×2 (08:40→20:50)
[2020-04-21] MEDS: ISOSORBIDE MONONITRATE 30 MG TABLET PO SCH (08:40)
[2020-04-21] MEDS: GABAPENTIN 100 MG CAPSULE PER TUBE SCH ×2 (08:40→20:50)
[2020-04-21] MEDS: allopurinoL 100 MG TABLET PER TUBE SCH (08:40)
[2020-04-21] MEDS: ENOXAPARIN 30 MG/0.3 ML SYRINGE SUBCUT SCH (13:41)
[2020-04-21] MEDS: PANTOPRAZOLE 40 MG VIAL IV SCH (13:41)
[2020-04-21] MEDS: ATORVASTATIN 80 MG TABLET PO SCH (20:50)
[2020-04-22] MEDS: INSULIN REGULAR 100 UNIT/ML SUBCUT SCH ×6 (00:24→20:43)
[2020-04-22] MEDS: MEROPENEM 500 MG in SODIUM CHLORIDE 0.9% 100 ML IV SCH ×2 (03:05→15:48)
[2020-04-22 04:37] LABS: Basophils % 0.2 % (0.0-0.8); Eosinophils # 0.4 10*3/uL (0.0-0.87); Eosinophils % 2.3 % (0.00-10.9); Hematocrit 23.2 VOL% (42.0-52.0); Hemoglobin 7.7 GM/DL (14.0-18.0); Immature Granulocytes % 1.7 %; Immature Granulocytes Absolute 0.29 #; Lymphocytes # 2.3 10*3/uL (1.4-4.0); Lymphocytes % 13.5 % (21.2-54.2); Mean Corpuscular HGB Conc 33.2 GM/DL (32-36); Mean Corpuscular Volume 78.6 FL (87-102); Mean Platelet Volume 11.9 FL (9.6-12.0); Monocytes % 9.5 % (1.7-12.7); Neutrophils % 72.8 % (38.7-73.9); Platelet Count 195 T/CUMM (130-400); Red Blood Count 2.95 MC/CUMM (3.8-5.5); Red Cell Distribution Width 14.9 % (9.3-17.3); White Blood Count 16.7 T/CUMM (4-12)
[2020-04-22 04:51] LABS: Calcium 8.3 MG/DL (8.5-10.1); Osmolality,Calculated 292.4 MOS/KG (273-304)
[2020-04-22] MEDS: ASPIRIN CHEW 81 MG TABLET PO SCH (08:34)
[2020-04-22] MEDS: GABAPENTIN 100 MG CAPSULE PER TUBE SCH ×2 (08:34→20:44)
[2020-04-22] MEDS: RANOLAZINE 500 MG TABLET PO SCH ×2 (08:34→20:44)
[2020-04-22] MEDS: allopurinoL 100 MG TABLET PER TUBE SCH (08:34)
[2020-04-22] MEDS: PANTOPRAZOLE 40 MG TABLET PO SCH (08:35)
[2020-04-22] MEDS: carvediloL 25 MG TABLET PO SCH ×2 (08:36→20:43)
[2020-04-22] MEDS: ISOSORBIDE MONONITRATE 30 MG TABLET PO SCH (08:38)
[2020-04-22] MEDS: LEVOFLOXACIN 750 MG TABLET PER TUBE SCH (12:39)
[2020-04-22] MEDS: ENOXAPARIN 30 MG/0.3 ML SYRINGE SUBCUT SCH (12:39)
[2020-04-22] MEDS: ATORVASTATIN 80 MG TABLET PO SCH (20:44)
[2020-04-23] MEDS: MEROPENEM 500 MG in SODIUM CHLORIDE 0.9% 100 ML IV SCH ×2 (02:11→15:05)
[2020-04-23 05:27] LABS: Basophils % 0.2 % (0.0-0.8); Eosinophils # 0.2 10*3/uL (0.0-0.87); Eosinophils % 0.9 % (0.00-10.9); Hematocrit 22.7 VOL% (42.0-52.0); Hemoglobin 7.6 GM/DL (14.0-18.0); Immature Granulocytes % 1.5 %; Lymphocytes # 1.9 10*3/uL (1.4-4.0); Lymphocytes % 9.7 % (21.2-54.2); Mean Corpuscular HGB Conc 33.5 GM/DL (32-36); Mean Corpuscular Volume 79.1 FL (87-102); Mean Platelet Volume 11.5 FL (9.6-12.0); Monocytes % 9.1 % (1.7-12.7); Neutrophils % 78.6 % (38.7-73.9); Platelet Count 189 T/CUMM (130-400); Red Blood Count 2.87 MC/CUMM (3.8-5.5); Red Cell Distribution Width 14.9 % (9.3-17.3); White Blood Count 19.5 T/CUMM (4-12)
[2020-04-23 05:47] LABS: Calcium 8.7 MG/DL (8.5-10.1); Osmolality,Calculated 288.8 MOS/KG (273-304)
[2020-04-23] MEDS: INSULIN REGULAR 100 UNIT/ML SUBCUT SCH ×4 (08:23→21:40)
[2020-04-23] MEDS: carvediloL 25 MG TABLET PO SCH ×2 (08:27→21:41)
[2020-04-23] MEDS: PANTOPRAZOLE 40 MG TABLET PO SCH (08:27)
[2020-04-23] MEDS: ASPIRIN CHEW 81 MG TABLET PO SCH (08:27)
[2020-04-23] MEDS: RANOLAZINE 500 MG TABLET PO SCH ×2 (08:27→21:44)
[2020-04-23] MEDS: ISOSORBIDE MONONITRATE 30 MG TABLET PO SCH (08:27)
[2020-04-23] MEDS: GABAPENTIN 100 MG CAPSULE PER TUBE SCH ×2 (08:27→21:41)
[2020-04-23] MEDS: allopurinoL 100 MG TABLET PER TUBE SCH (08:27)
[2020-04-23 09:03] LABS: Bacteria,Urine Occasional /HPF (Few); Bilirubin,Urine Negative (Negative); Blood, Urine Moderate mg/dL (Negative); Glucose,Urine (UA) Negative (Negative); Hyaline Casts,Urine 3 /LPF (0-3); Ketones,Urine Negative (Negative); Mucus,Urine Occasional /LPF (Occasional); Nitrite,Urine Negative (Negative); Protein,Urine Negative; RBC,Urine 68 /HPF (0-4); Squamous Epithelial Cell,Urine Occasional /HPF (0-10); Urine Appearance Slightly Hazy (Clear); Urine Color Yellow (Yellow); Urine Specific Gravity 1.013 (1.001-1.035); Urine Urobilinogen < 2.0 EU/DL (0.2-1.0); WBC,Urine 3 /HPF (0-6)
[2020-04-23] MEDS: hydrALAZINE 25 MG TABLET PO SCH ×3 (10:44→21:41)
[2020-04-23] MEDS: ENOXAPARIN 30 MG/0.3 ML SYRINGE SUBCUT SCH (15:03)
[2020-04-23] MEDS: ATORVASTATIN 80 MG TABLET PO SCH (21:41)
[2020-04-24] MEDS: MEROPENEM 500 MG in SODIUM CHLORIDE 0.9% 100 ML IV SCH ×2 (01:50→18:07)
[2020-04-24 05:41] LABS: Basophils % 0.2 % (0.0-0.8); Eosinophils # 0.4 10*3/uL (0.0-0.87); Eosinophils % 2.9 % (0.00-10.9); Hematocrit 21.3 VOL% (42.0-52.0); Immature Granulocytes Absolute 0.13 #; Lymphocytes # 1.6 10*3/uL (1.4-4.0); Lymphocytes % 11.8 % (21.2-54.2); Mean Corpuscular HGB Conc 32.9 GM/DL (32-36); Mean Corpuscular Volume 78.9 FL (87-102); Mean Platelet Volume 12.4 FL (9.6-12.0); Monocytes % 10.4 % (1.7-12.7); Neutrophils % 73.7 % (38.7-73.9); Platelet Count 160 T/CUMM (130-400); White Blood Count 13.3 T/CUMM (4-12)
[2020-04-24 06:05] LABS: Calcium 8.5 MG/DL (8.5-10.1); Osmolality,Calculated 291.7 MOS/KG (273-304)
[2020-04-24] MEDS: INSULIN REGULAR 100 UNIT/ML SUBCUT SCH ×4 (07:50→21:13)
[2020-04-24] MEDS ORDERED: SODIUM CHLORIDE 0.9% 1,000 ML IV PRN (08:27)
[2020-04-24] MEDS ORDERED: FUROSEMIDE 20 MG/2 ML VIAL IV PRN (08:30)
[2020-04-24] MEDS: ASPIRIN CHEW 81 MG TABLET PO SCH (08:42)
[2020-04-24] MEDS: hydrALAZINE 25 MG TABLET PO SCH ×3 (08:42→21:13)
[2020-04-24] MEDS: GABAPENTIN 100 MG CAPSULE PER TUBE SCH ×2 (08:43→21:13)
[2020-04-24] MEDS: carvediloL 25 MG TABLET PO SCH ×2 (08:43→21:13)
[2020-04-24] MEDS: PANTOPRAZOLE 40 MG TABLET PO SCH (08:43)
[2020-04-24] MEDS: allopurinoL 100 MG TABLET PER TUBE SCH (08:43)
[2020-04-24] MEDS: ISOSORBIDE MONONITRATE 30 MG TABLET PO SCH (08:43)
[2020-04-24] MEDS: RANOLAZINE 500 MG TABLET PO SCH ×2 (10:14→21:12)
[2020-04-24] MEDS: LEVOFLOXACIN 750 MG TABLET PER TUBE SCH (13:29)
[2020-04-24] MEDS: ATORVASTATIN 80 MG TABLET PO SCH (21:12)
[2020-04-25 05:29] LABS: Basophils % 0.3 % (0.0-0.8); Eosinophils # 0.5 10*3/uL (0.0-0.87); Eosinophils % 3.3 % (0.00-10.9); Hematocrit 27.2 VOL% (42.0-52.0); Hemoglobin 9.3 GM/DL (14.0-18.0); Immature Granulocytes % 1.4 %; Immature Granulocytes Absolute 0.19 #; Lymphocytes # 1.6 10*3/uL (1.4-4.0); Lymphocytes % 11.9 % (21.2-54.2); Mean Corpuscular HGB Conc 34.2 GM/DL (32-36); Mean Corpuscular Volume 80.5 FL (87-102); Mean Platelet Volume 11.5 FL (9.6-12.0); Monocytes % 10.2 % (1.7-12.7); Neutrophils % 72.9 % (38.7-73.9); Platelet Count 143 T/CUMM (130-400); Red Blood Count 3.38 MC/CUMM (3.8-5.5); Red Cell Distribution Width 15.4 % (9.3-17.3); White Blood Count 13.6 T/CUMM (4-12)
[2020-04-25 05:45] LABS: Calcium 8.4 MG/DL (8.5-10.1)
[2020-04-25 05:52] LABS: Hypochromasia 1+; Microcytosis 1+; Ovalocytes Slight; Platelet Estimate Adequate
[2020-04-25] MEDS: INSULIN REGULAR 100 UNIT/ML SUBCUT SCH ×4 (08:07→21:27)
[2020-04-25] MEDS: GABAPENTIN 100 MG CAPSULE PER TUBE SCH ×2 (08:50→20:58)
[2020-04-25] MEDS: carvediloL 25 MG TABLET PO SCH ×2 (08:50→20:59)
[2020-04-25] MEDS: PANTOPRAZOLE 40 MG TABLET PO SCH (08:50)
[2020-04-25] MEDS: ISOSORBIDE MONONITRATE 30 MG TABLET PO SCH (08:50)
[2020-04-25] MEDS: allopurinoL 100 MG TABLET PER TUBE SCH (08:50)
[2020-04-25] MEDS: RANOLAZINE 500 MG TABLET PO SCH ×2 (08:50→20:58)
[2020-04-25] MEDS: ASPIRIN CHEW 81 MG TABLET PO SCH (08:51)
[2020-04-25] MEDS: hydrALAZINE 25 MG TABLET PO SCH ×3 (08:51→20:59)
[2020-04-25] MEDS: ATORVASTATIN 80 MG TABLET PO SCH (20:58)
[2020-04-26 06:02] LABS: Calcium 8.6 MG/DL (8.5-10.1); Osmolality,Calculated 285.1 MOS/KG (273-304)
[2020-04-26 07:22] LABS: Basophils # 0.1 10*3/uL (0.0-0.2); Basophils % 0.4 % (0.0-0.8); Eosinophils # 0.4 10*3/uL (0.0-0.87); Eosinophils % 2.9 % (0.00-10.9); Hematocrit 27.5 VOL% (42.0-52.0); Hemoglobin 9.4 GM/DL (14.0-18.0); Immature Granulocytes % 1.2 %; Immature Granulocytes Absolute 0.15 #; Lymphocytes # 1.8 10*3/uL (1.4-4.0); Lymphocytes % 13.9 % (21.2-54.2); Mean Corpuscular HGB Conc 34.2 GM/DL (32-36); Mean Corpuscular Volume 81.8 FL (87-102); Mean Platelet Volume 12.2 FL (9.6-12.0); Monocytes % 10.4 % (1.7-12.7); Neutrophils % 71.2 % (38.7-73.9); Platelet Count 155 T/CUMM (130-400); Red Blood Count 3.36 MC/CUMM (3.8-5.5); Red Cell Distribution Width 15.7 % (9.3-17.3); White Blood Count 12.9 T/CUMM (4-12)
[2020-04-26] MEDS: INSULIN REGULAR 100 UNIT/ML SUBCUT SCH ×2 (07:54→11:52)
[2020-04-26] MEDS: ASPIRIN CHEW 81 MG TABLET PO SCH (08:39)
[2020-04-26] MEDS: hydrALAZINE 25 MG TABLET PO SCH (08:39)
[2020-04-26] MEDS: PANTOPRAZOLE 40 MG TABLET PO SCH (08:39)
[2020-04-26] MEDS: carvediloL 25 MG TABLET PO SCH (08:39)
[2020-04-26] MEDS: RANOLAZINE 500 MG TABLET PO SCH (08:39)
[2020-04-26] MEDS: allopurinoL 100 MG TABLET PER TUBE SCH (08:39)
[2020-04-26] MEDS: GABAPENTIN 100 MG CAPSULE PER TUBE SCH (08:39)
[2020-04-26] MEDS: ISOSORBIDE MONONITRATE 30 MG TABLET PO SCH (08:39)
[2020-04-26 11:56] VITALS: BP 139/64
== END 2020-04-26 13:04 | disposition home health service (06) | DRG 208 ==
LOC: EDBD → EDUNIT# → N.ED 09:26 → SUATTDRO 10:54 → N.EDINP 10:54 → N.CC 11:20 → N.5E 04-23 12:03
PROVIDERS: ADMIT Internal Medicine; ATTEND Internal Medicine

== ENCOUNTER 2020-04-30 03:52 | Inpatient (IN) ==
[2020-04-30] MEDS ORDERED: FUROSEMIDE 40 MG/4 ML VIAL ONE (04:04)
[2020-04-30] MEDS ORDERED: ALBUTEROL/IPRATROPIUM 3 ML NEB RESP TX STA (04:06)
[2020-04-30] MEDS ORDERED: ONDANSETRON 4 MG/2 ML VIAL IV STA (04:06)
[2020-04-30] MEDS ORDERED: MORPHINE 4 MG/1 ML VIAL IV STA (04:06)
[2020-04-30] MEDS ORDERED: FUROSEMIDE 100 MG/10 ML VIAL IV STA (04:06)
[2020-04-30] MEDS ORDERED: methylPREDNISolone SOD SUC 125 MG/2 ML VIAL IV STA (04:06)
[2020-04-30 04:17] LABS: Basophils # 0.1 10*3/uL (0.0-0.2); Basophils % 0.6 % (0.0-0.8); Eosinophils # 0.6 10*3/uL (0.0-0.87); Eosinophils % 4.3 % (0.00-10.9); Hematocrit 30.3 VOL% (42.0-52.0); Hemoglobin 10.1 GM/DL (14.0-18.0); Immature Granulocytes % 0.8 %; Immature Granulocytes Absolute 0.11 #; Lymphocytes # 2.2 10*3/uL (1.4-4.0); Lymphocytes % 16.4 % (21.2-54.2); Mean Corpuscular HGB Conc 33.3 GM/DL (32-36); Mean Corpuscular Volume 82.3 FL (87-102); Mean Platelet Volume 11.9 FL (9.6-12.0); Neutrophils % 69.9 % (38.7-73.9); Platelet Count 211 T/CUMM (130-400); Red Blood Count 3.68 MC/CUMM (3.8-5.5); Red Cell Distribution Width 16.1 % (9.3-17.3); White Blood Count 13.3 T/CUMM (4-12)
[2020-04-30 04:29] LABS: INR 1.1; PT Patient Result 11.9 SECS (9.8-11.9)
[2020-04-30 04:36] LABS: Eosinophils 5 % (0-10); Hypochromasia 1+; Lymphocytes 11 % (20-55); Ovalocytes Slight; Platelet Estimate Adequate; Segmented Neutrophils 77 % (50-85); Total Cells Counted 100
[2020-04-30 04:37] LABS: Microcytosis Slight
[2020-04-30 04:40] LABS: ABG Base Excess -2.5 MMOL/L (-2.5-2.5); ABG HCO3 22.4 MMOL/L (20-26); ABG PCO2 39.1 MM HG (35-48); ABG PH 7.376 (7.35-7.45); ABG PO2 44.4 MM HG (80-95); ABG TCO2 23.6 MMOL/L (23-27)
[2020-04-30 04:41] LABS: ABG Oxygen Saturation 77.1 % (95-100)
[2020-04-30 05:01] LABS: Bilirubin,Urine Negative (Negative); Blood, Urine Negative (Negative); Glucose,Urine (UA) Negative (Negative); Hyaline Casts,Urine 1 /LPF (0-3); Ketones,Urine Negative (Negative); Mucus,Urine Occasional /LPF (Occasional); Nitrite,Urine Negative (Negative); Protein,Urine Negative; RBC,Urine 1 /HPF (0-4); Squamous Epithelial Cell,Urine Occasional /HPF (0-10); Urine Appearance CLEAR (Clear); Urine Color Yellow (Yellow); Urine Specific Gravity 1.009 (1.001-1.035); Urine Urobilinogen < 2.0 EU/DL (0.2-1.0)
[2020-04-30 05:07] LABS: Albumin 2.9 G/DL (3.4-5.0); Calcium 8.6 MG/DL (8.5-10.1); Osmolality,Calculated 293.7 MOS/KG (273-304); Total Protein 7.1 G/DL (6.4-8.3)
[2020-04-30] MEDS ORDERED: GLUCAGON 1 MG VIAL IM PRN (05:55)
[2020-04-30] MEDS ORDERED: DEXTROSE 50% 25 GM/50 ML VIAL IV PRN (05:55)
[2020-04-30] MEDS ORDERED: ACETAMINOPHEN 325 MG TABLET PO PRN (05:55)
[2020-04-30] MEDS ORDERED: ONDANSETRON 4 MG/2 ML VIAL IV PRN (05:55)
[2020-04-30 06:04] LABS: ABG Base Excess -1.7 MMOL/L (-2.5-2.5); ABG Oxygen Saturation 97.9 % (95-100); ABG PCO2 38.4 MM HG (35-48); ABG PH 7.385 (7.35-7.45); ABG TCO2 20.2 MMOL/L (23-27); Allen Test Positive; Pt O2 Delivery Device BIPAP
[2020-04-30] MEDS ORDERED: ASPIRIN EC 81 MG TABLET PO SCH (09:00)
[2020-04-30] MEDS ORDERED: PANTOPRAZOLE 40 MG TABLET PO SCH (09:00)
[2020-04-30] MEDS ORDERED: ISOSORBIDE MONONITRATE 30 MG TABLET PO SCH (09:00)
[2020-04-30] MEDS: FUROSEMIDE 40 MG/4 ML VIAL IV SCH ×2 (09:50→17:52)
[2020-04-30] MEDS: HEPARIN 5,000 UNIT/1 ML VIAL SUBCUT SCH ×2 (09:59→17:54)
[2020-04-30] MEDS ORDERED: AZITHROMYCIN INJ 500 MG in SODIUM CHLORIDE 0.9% 250 ML IV SCH (10:00)
[2020-04-30] MEDS ORDERED: cefTRIAXone 1,000 MG in SYRINGE 1 EACH IV SCH (10:00)
[2020-04-30] MEDS ORDERED: ETOMIDATE 20 MG/10 ML VIAL IV ONE (10:19)
[2020-04-30] MEDS ORDERED: VECURONIUM 10 MG VIAL IV ONE (10:19)
[2020-04-30] MEDS ORDERED: ALBUTEROL 2.5 MG/3 ML NEB RESP TX PRN (10:39)
[2020-04-30 11:36] LABS: ABG Base Excess -3.9 MMOL/L (-2.5-2.5); ABG HCO3 21.1 MMOL/L (20-26); ABG Oxygen Saturation 99.2 % (95-100); ABG PCO2 40.9 MM HG (35-48); ABG PH 7.333 (7.35-7.45); ABG TCO2 19.9 MMOL/L (23-27)
[2020-04-30] MEDS: methylPREDNISolone SOD SUC 40 MG/1 ML VIAL IV SCH ×3 (11:52→21:05)
[2020-04-30] MEDS: ALBUTEROL/IPRATROPIUM 3 ML NEB RESP TX SCH ×2 (13:12→19:20)
[2020-04-30] MEDS: INSULIN LISPRO 100 UNIT/ML SUBCUT SCH ×3 (16:07→20:36)
[2020-04-30] MEDS: hydrALAZINE 25 MG TABLET PO SCH ×3 (16:09→20:15)
[2020-04-30] MEDS: GABAPENTIN 100 MG CAPSULE PO SCH ×2 (16:11→20:15)
[2020-04-30] MEDS: RANOLAZINE 500 MG TABLET PO SCH ×2 (16:12→20:15)
[2020-04-30] MEDS: cefTRIAXone 1,000 MG in SYRINGE 1 EACH IV SCH (17:49)
[2020-04-30] MEDS: AZITHROMYCIN INJ 500 MG in SODIUM CHLORIDE 0.9% 250 ML IV SCH (17:55)
[2020-04-30] MEDS: carvediloL 25 MG TABLET PO SCH (20:15)
[2020-04-30] MEDS: ATORVASTATIN 80 MG TABLET PO SCH (20:15)
[2020-04-30] MEDS ORDERED: TERAZOSIN 1 MG CAPSULE PO SCH (21:00)
[2020-05-01] MEDS: ALBUTEROL/IPRATROPIUM 3 ML NEB RESP TX SCH ×4 (00:49→20:01)
[2020-05-01] MEDS: HEPARIN 5,000 UNIT/1 ML VIAL SUBCUT SCH ×4 (01:46→23:59)
[2020-05-01 03:43] LABS: Hematocrit 24.6 VOL% (42.0-52.0); Hemoglobin 8.2 GM/DL (14.0-18.0); Immature Granulocytes % 0.3 %; Immature Granulocytes Absolute 0.03 #; Lymphocytes # 0.6 10*3/uL (1.4-4.0); Lymphocytes % 6.8 % (21.2-54.2); Mean Corpuscular HGB Conc 33.3 GM/DL (32-36); Mean Corpuscular Volume 80.7 FL (87-102); Mean Platelet Volume 11.6 FL (9.6-12.0); Monocytes % 2.3 % (1.7-12.7); Neutrophils % 90.6 % (38.7-73.9); Platelet Count 175 T/CUMM (130-400); Red Blood Count 3.05 MC/CUMM (3.8-5.5); Red Cell Distribution Width 16.1 % (9.3-17.3); White Blood Count 9.3 T/CUMM (4-12)
[2020-05-01 04:04] LABS: Calcium 8.8 MG/DL (8.5-10.1); Osmolality,Calculated 299.5 MOS/KG (273-304)
[2020-05-01 04:31] LABS: Hypochromasia 1+; Lymphocytes 9 % (20-55); Microcytosis 1+; Ovalocytes Slight; Platelet Estimate Adequate; Segmented Neutrophils 85 % (50-85); Total Cells Counted 100
[2020-05-01 04:31] LABS: ABG Base Excess -1.2 MMOL/L (-2.5-2.5); ABG HCO3 20.9 MMOL/L (20-26); ABG Oxygen Saturation 98.7 % (95-100); ABG PCO2 26.6 MM HG (35-48); ABG PH 7.514 (7.35-7.45); ABG PO2 248.4 MM HG (80-95); ABG TCO2 21.8 MMOL/L (23-27); Allen Test Positive; Pt O2 Delivery Device Ventilator
[2020-05-01] MEDS: methylPREDNISolone SOD SUC 40 MG/1 ML VIAL IV SCH ×4 (05:02→21:37)
[2020-05-01] MEDS: INSULIN LISPRO 100 UNIT/ML SUBCUT SCH ×4 (07:37→23:59)
[2020-05-01] MEDS: FUROSEMIDE 40 MG/4 ML VIAL IV SCH ×2 (08:32→16:11)
[2020-05-01] MEDS: PANTOPRAZOLE 40 MG VIAL IV SCH (08:58)
[2020-05-01] MEDS: ASPIRIN CHEW 81 MG TABLET PO SCH (08:59)
[2020-05-01] MEDS: RANOLAZINE 500 MG TABLET PO SCH ×2 (08:59→21:37)
[2020-05-01] MEDS: carvediloL 25 MG TABLET PO SCH ×2 (08:59→21:37)
[2020-05-01] MEDS: GABAPENTIN 100 MG CAPSULE PO SCH ×2 (08:59→21:37)
[2020-05-01] MEDS ORDERED: cilostazoL 50 MG TABLET PO SCH (09:00)
[2020-05-01] MEDS ORDERED: MIDAZOLAM 100 MG in SODIUM CHLORIDE 0.9% 80 ML IV PRN (11:00)
[2020-05-01] MEDS ORDERED: NOREPINEPHRINE 4 MG/4 ML VIAL IV ONE (14:13)
[2020-05-01] MEDS ORDERED: NOREPINEPHRINE 8 MG in SODIUM CHLORIDE 0.9% 242 ML IV PRN (14:22)
[2020-05-01] MEDS: MENTHOL/ZINC OXIDE OINT 71 GM JAR TOP SCH (14:52)
[2020-05-01] MEDS: cefTRIAXone 1,000 MG in SYRINGE 1 EACH IV SCH (16:11)
[2020-05-01] MEDS: AZITHROMYCIN INJ 500 MG in SODIUM CHLORIDE 0.9% 250 ML IV SCH (16:18)
[2020-05-01] MEDS: ATORVASTATIN 80 MG TABLET PO SCH (21:37)
[2020-05-02] MEDS: MENTHOL/ZINC OXIDE OINT 71 GM JAR TOP SCH ×3 (00:01→22:11)
[2020-05-02] MEDS: ALBUTEROL/IPRATROPIUM 3 ML NEB RESP TX SCH ×4 (00:55→19:23)
[2020-05-02 04:21] LABS: ABG Base Excess -2.1 MMOL/L (-2.5-2.5); ABG HCO3 22.6 MMOL/L (20-26); ABG Oxygen Saturation 95.1 % (95-100); ABG PCO2 36.4 MM HG (35-48); ABG PH 7.396 (7.35-7.45); ABG PO2 81.2 MM HG (80-95); ABG TCO2 19.9 MMOL/L (23-27); Allen Test Positive; Pt O2 Delivery Device Ventilator
[2020-05-02] MEDS: methylPREDNISolone SOD SUC 40 MG/1 ML VIAL IV SCH ×4 (05:38→22:09)
[2020-05-02] MEDS: INSULIN LISPRO 100 UNIT/ML SUBCUT SCH ×4 (05:38→23:34)
[2020-05-02 05:41] LABS: Total Protein 6.6 G/DL (6.4-8.3)
[2020-05-02 05:42] LABS: Parathyroid Hormone Intact 264.1 PG/ML (18.4-80.1)
[2020-05-02] MEDS: FUROSEMIDE 40 MG/4 ML VIAL IV SCH ×2 (07:12→14:59)
[2020-05-02] MEDS: HEPARIN 5,000 UNIT/1 ML VIAL SUBCUT SCH ×3 (07:13→23:24)
[2020-05-02 08:41] LABS: Calcium 8.3 MG/DL (8.5-10.1); Osmolality,Calculated 313.5 MOS/KG (273-304)
[2020-05-02] MEDS: PANTOPRAZOLE 40 MG VIAL IV SCH (09:12)
[2020-05-02] MEDS: ASPIRIN CHEW 81 MG TABLET PO SCH (09:15)
[2020-05-02] MEDS: GABAPENTIN 100 MG CAPSULE PO SCH ×2 (09:16→21:58)
[2020-05-02] MEDS: AZITHROMYCIN 250 MG TABLET PO SCH (09:16)
[2020-05-02] MEDS: RANOLAZINE 500 MG TABLET PO SCH ×2 (09:17→21:58)
[2020-05-02] MEDS: carvediloL 25 MG TABLET PO SCH ×2 (09:36→21:58)
[2020-05-02 09:39] LABS: Basophils % 0.1 % (0.0-0.8); Hematocrit 26.3 VOL% (42.0-52.0); Hemoglobin 8.8 GM/DL (14.0-18.0); Immature Granulocytes % 0.5 %; Immature Granulocytes Absolute 0.06 #; Lymphocytes # 0.5 10*3/uL (1.4-4.0); Lymphocytes % 3.7 % (21.2-54.2); Mean Corpuscular HGB Conc 33.5 GM/DL (32-36); Mean Corpuscular Volume 82.4 FL (87-102); Mean Platelet Volume 12.3 FL (9.6-12.0); Monocytes % 2.2 % (1.7-12.7); Neutrophils % 93.5 % (38.7-73.9); Platelet Count 219 T/CUMM (130-400); Red Blood Count 3.19 MC/CUMM (3.8-5.5); Red Cell Distribution Width 16.3 % (9.3-17.3); White Blood Count 12.5 T/CUMM (4-12)
[2020-05-02 09:43] LABS: Immunoglobulin A (Chem) 291 MG/DL (70-400); Immunoglobulin G (Chem) 1140 MG/DL (700-1600); Immunoglobulin M (Chem) 90 MG/DL (40-230); Total Protein (Chem) 6.6 G/DL (6.4-8.3)
[2020-05-02 10:39] LABS: Albumin (SPE) 3.2 G/DL (3.2-5.3); Albumin (SPE) Rel % 48.2 %; Alpha 1 (SPE) 0.3 G/DL (0.1-0.4); Alpha 1 (SPE) Rel % 4.9 %; Alpha 2 (SPE) 0.9 G/DL (0.4-1.0); Alpha 2 (SPE) Rel % 13.2 %; Beta (SPE) 0.8 G/DL (0.5-1.1); Beta (SPE) Rel % 11.5 %; Gamma (SPE) 1.5 G/DL (0.7-1.7); Gamma (SPE) Rel % 22.2 %
[2020-05-02 11:04] LABS: Band Neutrophils 4 % (0-10); Lymphocytes 4 % (20-55); Nucleated Red Blood Cells 28 (0-5); Segmented Neutrophils 90 % (50-85); Total Cells Counted 100
[2020-05-02 11:05] LABS: Anisocytosis 1+; Burr Cells Few; Platelet Estimate Normal
[2020-05-02] MEDS: cefTRIAXone 1,000 MG in SYRINGE 1 EACH IV SCH (17:12)
[2020-05-02] MEDS: ATORVASTATIN 80 MG TABLET PO SCH (21:58)
[2020-05-03] MEDS: ALBUTEROL/IPRATROPIUM 3 ML NEB RESP TX SCH ×4 (00:39→19:18)
[2020-05-03 03:51] LABS: ABG Base Excess -1.4 MMOL/L (-2.5-2.5); ABG HCO3 22.6 MMOL/L (20-26); ABG PCO2 34.7 MM HG (35-48); ABG PH 7.431 (7.35-7.45); ABG PO2 79.6 MM HG (80-95); ABG TCO2 23.6 MMOL/L (23-27)
[2020-05-03 05:18] LABS: Hematocrit 27.1 VOL% (42.0-52.0); Hemoglobin 8.9 GM/DL (14.0-18.0); Immature Granulocytes % 0.6 %; Immature Granulocytes Absolute 0.08 #; Lymphocytes # 0.4 10*3/uL (1.4-4.0); Mean Corpuscular HGB Conc 32.8 GM/DL (32-36); Mean Corpuscular Volume 80.9 FL (87-102); Mean Platelet Volume 12.8 FL (9.6-12.0); Monocytes % 2.9 % (1.7-12.7); Neutrophils % 93.5 % (38.7-73.9); Platelet Count 194 T/CUMM (130-400); Red Blood Count 3.35 MC/CUMM (3.8-5.5); Red Cell Distribution Width 16.2 % (9.3-17.3); White Blood Count 13.5 T/CUMM (4-12)
[2020-05-03 05:42] LABS: Eosinophils 1 % (0-10); Hypochromasia Slight; Lymphocytes 2 % (20-55); Microcytosis Slight; Platelet Estimate Normal; Segmented Neutrophils 96 % (50-85); Total Cells Counted 100
[2020-05-03 05:54] LABS: Calcium 8.4 MG/DL (8.5-10.1); Osmolality,Calculated 317.1 MOS/KG (273-304)
[2020-05-03 06:06] LABS: Ferritin 421.4 ng/ml (26-388)
[2020-05-03] MEDS: INSULIN LISPRO 100 UNIT/ML SUBCUT SCH ×3 (06:30→18:12)
[2020-05-03] MEDS: methylPREDNISolone SOD SUC 40 MG/1 ML VIAL IV SCH ×4 (06:59→21:56)
[2020-05-03] MEDS: FUROSEMIDE 40 MG/4 ML VIAL IV SCH ×2 (07:00→16:20)
[2020-05-03] MEDS: HEPARIN 5,000 UNIT/1 ML VIAL SUBCUT SCH ×2 (07:00→16:27)
[2020-05-03] MEDS: INSULIN NPH 100 UNIT/ML SUBCUT SCH (08:22)
[2020-05-03] MEDS: PANTOPRAZOLE 40 MG VIAL IV SCH (08:28)
[2020-05-03] MEDS: GABAPENTIN 100 MG CAPSULE PO SCH ×2 (08:29→21:56)
[2020-05-03] MEDS: AZITHROMYCIN 250 MG TABLET PO SCH (08:29)
[2020-05-03] MEDS: RANOLAZINE 500 MG TABLET PO SCH ×2 (08:29→21:56)
[2020-05-03] MEDS: ASPIRIN CHEW 81 MG TABLET PO SCH (08:29)
[2020-05-03] MEDS: MENTHOL/ZINC OXIDE OINT 71 GM JAR TOP SCH ×2 (08:30→21:57)
[2020-05-03] MEDS: carvediloL 25 MG TABLET PO SCH ×2 (08:30→21:56)
[2020-05-03 10:45] LABS: Pt O2 Delivery Device Ventilator
[2020-05-03 10:46] LABS: ABG Base Excess -0.1 MMOL/L (-2.5-2.5); ABG HCO3 24.3 MMOL/L (20-26); ABG Oxygen Saturation 99.4 % (95-100); ABG PCO2 36.8 MM HG (35-48); ABG PH 7.423 (7.35-7.45); ABG TCO2 22.1 MMOL/L (23-27)
[2020-05-03 12:12] LABS: Pt O2 Delivery Device Ventilator
[2020-05-03 12:13] LABS: ABG Base Excess 0.2 MMOL/L (-2.5-2.5); ABG HCO3 24.6 MMOL/L (20-26); ABG Oxygen Saturation 99.6 % (95-100); ABG PCO2 37.4 MM HG (35-48); ABG PH 7.422 (7.35-7.45); ABG TCO2 22.4 MMOL/L (23-27)
[2020-05-03] MEDS: cefTRIAXone 1,000 MG in SYRINGE 1 EACH IV SCH (16:27)
[2020-05-03] MEDS: ATORVASTATIN 80 MG TABLET PO SCH (21:56)
[2020-05-04] MEDS: INSULIN LISPRO 100 UNIT/ML SUBCUT SCH ×5 (01:10→20:41)
[2020-05-04] MEDS: HEPARIN 5,000 UNIT/1 ML VIAL SUBCUT SCH ×3 (01:34→17:12)
[2020-05-04] MEDS: ALBUTEROL/IPRATROPIUM 3 ML NEB RESP TX SCH ×4 (02:32→20:10)
[2020-05-04] MEDS: methylPREDNISolone SOD SUC 40 MG/1 ML VIAL IV SCH ×2 (04:40→17:11)
[2020-05-04 05:58] LABS: Hematocrit 27.7 VOL% (42.0-52.0); Hemoglobin 9.1 GM/DL (14.0-18.0); Immature Granulocytes % 0.7 %; Immature Granulocytes Absolute 0.08 #; Lymphocytes # 0.4 10*3/uL (1.4-4.0); Lymphocytes % 3.9 % (21.2-54.2); Mean Corpuscular HGB Conc 32.9 GM/DL (32-36); Mean Corpuscular Volume 80.8 FL (87-102); Mean Platelet Volume 12.7 FL (9.6-12.0); Monocytes % 3.6 % (1.7-12.7); Neutrophils % 91.8 % (38.7-73.9); Platelet Count 224 T/CUMM (130-400); Red Blood Count 3.43 MC/CUMM (3.8-5.5); Red Cell Distribution Width 16.1 % (9.3-17.3); White Blood Count 11.4 T/CUMM (4-12)
[2020-05-04 06:20] LABS: Calcium 8.6 MG/DL (8.5-10.1); Osmolality,Calculated 315.3 MOS/KG (273-304)
[2020-05-04 06:22] LABS: Hypochromasia 1+; Lymphocytes 2 % (20-55); Microcytosis 1+; Segmented Neutrophils 97 % (50-85); Total Cells Counted 100
[2020-05-04 06:23] LABS: Platelet Estimate Normal; Target Cells Slight
[2020-05-04] MEDS ORDERED: FUROSEMIDE 40 MG/4 ML VIAL IV SCH (09:00)
[2020-05-04] MEDS: FUROSEMIDE 40 MG/4 ML VIAL IV SCH ×2 (09:07→11:59)
[2020-05-04] MEDS: MENTHOL/ZINC OXIDE OINT 71 GM JAR TOP SCH ×2 (09:22→20:42)
[2020-05-04] MEDS: INSULIN NPH 100 UNIT/ML SUBCUT SCH (09:31)
[2020-05-04] MEDS: GABAPENTIN 100 MG CAPSULE PO SCH ×2 (09:33→20:41)
[2020-05-04] MEDS: ASPIRIN CHEW 81 MG TABLET PO SCH (09:33)
[2020-05-04] MEDS: AZITHROMYCIN 250 MG TABLET PO SCH (09:33)
[2020-05-04] MEDS: RANOLAZINE 500 MG TABLET PO SCH ×2 (09:33→20:41)
[2020-05-04] MEDS: carvediloL 25 MG TABLET PO SCH ×2 (09:33→20:41)
[2020-05-04] MEDS: PANTOPRAZOLE 40 MG VIAL IV SCH (09:37)
[2020-05-04] MEDS ORDERED: COLCHICINE 0.6 MG CAPSULE PO PRN (11:45)
[2020-05-04] MEDS: allopurinoL 100 MG TABLET PO SCH (12:23)
[2020-05-04] MEDS: cefTRIAXone 1,000 MG in SYRINGE 1 EACH IV SCH (17:11)
[2020-05-04] MEDS: hydrALAZINE 25 MG TABLET PO SCH (20:41)
[2020-05-04] MEDS: ATORVASTATIN 80 MG TABLET PO SCH (20:41)
[2020-05-05] MEDS: HEPARIN 5,000 UNIT/1 ML VIAL SUBCUT SCH ×3 (00:02→16:32)
[2020-05-05] MEDS: ALBUTEROL/IPRATROPIUM 3 ML NEB RESP TX SCH ×4 (01:50→19:22)
[2020-05-05] MEDS: methylPREDNISolone SOD SUC 40 MG/1 ML VIAL IV SCH (05:09)
[2020-05-05 06:13] LABS: Calcium 8.8 MG/DL (8.5-10.1); Osmolality,Calculated 312.8 MOS/KG (273-304)
[2020-05-05] MEDS: INSULIN NPH 100 UNIT/ML SUBCUT SCH (08:36)
[2020-05-05] MEDS: INSULIN LISPRO 100 UNIT/ML SUBCUT SCH ×4 (08:36→20:57)
[2020-05-05] MEDS: GABAPENTIN 100 MG CAPSULE PO SCH ×2 (08:40→20:57)
[2020-05-05] MEDS: PANTOPRAZOLE 40 MG TABLET PO SCH (08:40)
[2020-05-05] MEDS: carvediloL 25 MG TABLET PO SCH ×2 (08:40→20:57)
[2020-05-05] MEDS: ASPIRIN CHEW 81 MG TABLET PO SCH (08:40)
[2020-05-05] MEDS: hydrALAZINE 25 MG TABLET PO SCH ×3 (08:40→20:56)
[2020-05-05] MEDS: ISOSORBIDE MONONITRATE 30 MG TABLET PO SCH (08:41)
[2020-05-05] MEDS: allopurinoL 100 MG TABLET PO SCH (08:41)
[2020-05-05] MEDS: AZITHROMYCIN 250 MG TABLET PO SCH (08:41)
[2020-05-05] MEDS: RANOLAZINE 500 MG TABLET PO SCH ×2 (08:41→20:57)
[2020-05-05] MEDS: FUROSEMIDE 40 MG/4 ML VIAL IV SCH (08:42)
[2020-05-05] MEDS: MENTHOL/ZINC OXIDE OINT 71 GM JAR TOP SCH ×2 (11:49→21:00)
[2020-05-05] MEDS: cefTRIAXone 1,000 MG in SYRINGE 1 EACH IV SCH (16:31)
[2020-05-05] MEDS: ATORVASTATIN 80 MG TABLET PO SCH (20:56)
[2020-05-06] MEDS: HEPARIN 5,000 UNIT/1 ML VIAL SUBCUT SCH ×4 (01:10→23:55)
[2020-05-06 05:53] LABS: Basophils % 0.2 % (0.0-0.8); Hematocrit 24.6 VOL% (42.0-52.0); Hemoglobin 8.4 GM/DL (14.0-18.0); Immature Granulocytes % 1.8 %; Immature Granulocytes Absolute 0.19 #; Mean Corpuscular HGB Conc 34.1 GM/DL (32-36); Mean Corpuscular Volume 78.8 FL (87-102); Mean Platelet Volume 13.6 FL (9.6-12.0); Monocytes % 9.4 % (1.7-12.7); Neutrophils % 79.6 % (38.7-73.9); Platelet Count 204 T/CUMM (130-400); Red Blood Count 3.12 MC/CUMM (3.8-5.5); Red Cell Distribution Width 15.9 % (9.3-17.3); White Blood Count 10.8 T/CUMM (4-12)
[2020-05-06 06:13] LABS: Hypochromasia 1+; Microcytosis 1+; Platelet Estimate Adequate
[2020-05-06 06:15] LABS: Calcium 8.3 MG/DL (8.5-10.1); Osmolality,Calculated 304.7 MOS/KG (273-304)
[2020-05-06] MEDS ORDERED: diphenhydrAMINE CAP 25 MG CAPSULE PO ONE (07:00)
[2020-05-06] MEDS ORDERED: DIAZEPAM 5 MG TABLET PO ONE (07:00)
[2020-05-06] MEDS: ALBUTEROL/IPRATROPIUM 3 ML NEB RESP TX SCH ×4 (08:00→19:39)
[2020-05-06] MEDS: carvediloL 25 MG TABLET PO SCH ×2 (08:51→20:49)
[2020-05-06] MEDS: ISOSORBIDE MONONITRATE 30 MG TABLET PO SCH (08:51)
[2020-05-06] MEDS: allopurinoL 100 MG TABLET PO SCH (08:51)
[2020-05-06] MEDS: hydrALAZINE 25 MG TABLET PO SCH ×3 (08:51→20:49)
[2020-05-06] MEDS: GABAPENTIN 100 MG CAPSULE PO SCH ×2 (08:52→20:48)
[2020-05-06] MEDS: RANOLAZINE 500 MG TABLET PO SCH ×2 (08:52→20:48)
[2020-05-06] MEDS: AZITHROMYCIN 250 MG TABLET PO SCH (08:52)
[2020-05-06] MEDS: PANTOPRAZOLE 40 MG TABLET PO SCH (08:52)
[2020-05-06] MEDS: ASPIRIN CHEW 81 MG TABLET PO SCH (08:53)
[2020-05-06] MEDS: FUROSEMIDE 40 MG/4 ML VIAL IV SCH (08:53)
[2020-05-06] MEDS: INSULIN NPH 100 UNIT/ML SUBCUT SCH (08:55)
[2020-05-06] MEDS: INSULIN LISPRO 100 UNIT/ML SUBCUT SCH ×4 (08:55→20:49)
[2020-05-06 09:05] LABS: Random Urine Protein (Bench) 10 MG/DL (<11.9)
[2020-05-06] MEDS: MENTHOL/ZINC OXIDE OINT 71 GM JAR TOP SCH ×2 (09:05→20:49)
[2020-05-06] MEDS ORDERED: INSULIN GLARGINE 100 UNIT/ML SUBCUT ONE (10:41)
[2020-05-06] MEDS: cefTRIAXone 1,000 MG in SYRINGE 1 EACH IV SCH (16:16)
[2020-05-06] MEDS: ATORVASTATIN 80 MG TABLET PO SCH (20:49)
[2020-05-07] MEDS: ALBUTEROL/IPRATROPIUM 3 ML NEB RESP TX SCH ×4 (00:52→19:22)
[2020-05-07 05:48] LABS: Basophils % 0.4 % (0.0-0.8); Eosinophils # 0.9 10*3/uL (0.0-0.87); Hematocrit 25.2 VOL% (42.0-52.0); Hemoglobin 8.3 GM/DL (14.0-18.0); Immature Granulocytes % 5.3 %; Immature Granulocytes Absolute 0.59 #; Lymphocytes # 1.8 10*3/uL (1.4-4.0); Lymphocytes % 16.2 % (21.2-54.2); Mean Corpuscular HGB Conc 32.9 GM/DL (32-36); Mean Corpuscular Volume 80.5 FL (87-102); Mean Platelet Volume 12.8 FL (9.6-12.0); Monocytes % 11.6 % (1.7-12.7); Neutrophils % 58.5 % (38.7-73.9); Platelet Count 200 T/CUMM (130-400); Red Blood Count 3.13 MC/CUMM (3.8-5.5); Red Cell Distribution Width 15.9 % (9.3-17.3); White Blood Count 11.2 T/CUMM (4-12)
[2020-05-07 06:00] LABS: Calcium 8.6 MG/DL (8.5-10.1); Osmolality,Calculated 302.8 MOS/KG (273-304)
[2020-05-07 06:18] LABS: Eosinophils 10 % (0-10); Lymphocytes 17 % (20-55); Platelet Estimate Adequate; Segmented Neutrophils 67 % (50-85); Total Cells Counted 100
[2020-05-07 06:19] LABS: Hypochromasia 2+; Microcytosis 1+; Ovalocytes Slight
[2020-05-07] MEDS ORDERED: diphenhydrAMINE CAP 25 MG CAPSULE PO ONE (07:00)
[2020-05-07] MEDS ORDERED: DIAZEPAM 5 MG TABLET PO ONE (07:00)
[2020-05-07] MEDS ORDERED: LIDOCAINE 1% 20 ML VIAL ONE (07:03)
[2020-05-07] MEDS ORDERED: HEPARIN/NACL 0.9% 2 UNITS/ML 1,000 ML IV ONE (07:03)
[2020-05-07] MEDS ORDERED: MIDAZOLAM 2 MG/2 ML VIAL ONE (07:09)
[2020-05-07] MEDS ORDERED: fentaNYL 100 MCG/2 ML VIAL ONE (07:09)
[2020-05-07] MEDS ORDERED: SODIUM CHLORIDE 0.9% 1,000 ML IV SCH (08:30)
[2020-05-07 09:33] LABS: Calcium 8.2 MG/DL (8.5-10.1); Osmolality,Calculated 295.1 MOS/KG (273-304)
[2020-05-07] MEDS: INSULIN LISPRO 100 UNIT/ML SUBCUT SCH ×4 (11:15→21:21)
[2020-05-07] MEDS: RANOLAZINE 500 MG TABLET PO SCH ×2 (13:04→21:17)
[2020-05-07] MEDS: ASPIRIN CHEW 81 MG TABLET PO SCH (13:04)
[2020-05-07] MEDS: AZITHROMYCIN 250 MG TABLET PO SCH (13:04)
[2020-05-07] MEDS: ISOSORBIDE MONONITRATE 30 MG TABLET PO SCH (13:05)
[2020-05-07] MEDS: PANTOPRAZOLE 40 MG TABLET PO SCH (13:05)
[2020-05-07] MEDS: hydrALAZINE 25 MG TABLET PO SCH ×3 (13:06→21:18)
[2020-05-07] MEDS: GABAPENTIN 100 MG CAPSULE PO SCH ×2 (13:06→21:18)
[2020-05-07] MEDS: allopurinoL 100 MG TABLET PO SCH (13:06)
[2020-05-07] MEDS: carvediloL 25 MG TABLET PO SCH ×2 (13:06→21:18)
[2020-05-07] MEDS: INSULIN NPH 100 UNIT/ML SUBCUT SCH (13:09)
[2020-05-07] MEDS: HEPARIN 5,000 UNIT/1 ML VIAL SUBCUT SCH ×2 (13:10→18:04)
[2020-05-07] MEDS: FUROSEMIDE 40 MG/4 ML VIAL IV SCH (13:10)
[2020-05-07] MEDS: MENTHOL/ZINC OXIDE OINT 71 GM JAR TOP SCH ×2 (13:16→21:21)
[2020-05-07] MEDS: ATORVASTATIN 80 MG TABLET PO SCH (21:18)
[2020-05-08] MEDS: HEPARIN 5,000 UNIT/1 ML VIAL SUBCUT SCH ×2 (00:32→09:10)
[2020-05-08] MEDS: ALBUTEROL/IPRATROPIUM 3 ML NEB RESP TX SCH ×3 (02:14→14:06)
[2020-05-08 07:59] LABS: Basophils % 0.1 % (0.0-0.8); Eosinophils # 1.1 10*3/uL (0.0-0.87); Eosinophils % 9.9 % (0.00-10.9); Hematocrit 23.2 VOL% (42.0-52.0); Hemoglobin 7.9 GM/DL (14.0-18.0); Immature Granulocytes % 6.3 %; Immature Granulocytes Absolute 0.69 #; Lymphocytes # 1.8 10*3/uL (1.4-4.0); Mean Corpuscular HGB Conc 34.1 GM/DL (32-36); Mean Corpuscular Volume 79.7 FL (87-102); Mean Platelet Volume 12.3 FL (9.6-12.0); Monocytes % 12.6 % (1.7-12.7); Neutrophils % 55.1 % (38.7-73.9); Platelet Count 206 T/CUMM (130-400); Red Blood Count 2.91 MC/CUMM (3.8-5.5); Red Cell Distribution Width 16.3 % (9.3-17.3)
[2020-05-08 08:18] LABS: Band Neutrophils 1 % (0-10); Eosinophils 12 % (0-10); Lymphocytes 12 % (20-55); Segmented Neutrophils 63 % (50-85); Total Cells Counted 100
[2020-05-08 08:19] LABS: Hypochromasia 2+; Microcytosis 1+
[2020-05-08 08:20] LABS: Platelet Estimate Normal
[2020-05-08] MEDS: INSULIN LISPRO 100 UNIT/ML SUBCUT SCH ×2 (08:47→12:14)
[2020-05-08] MEDS: hydrALAZINE 25 MG TABLET PO SCH (09:09)
[2020-05-08] MEDS: ASPIRIN CHEW 81 MG TABLET PO SCH (09:09)
[2020-05-08] MEDS: allopurinoL 100 MG TABLET PO SCH (09:09)
[2020-05-08] MEDS: RANOLAZINE 500 MG TABLET PO SCH (09:09)
[2020-05-08] MEDS: FUROSEMIDE 40 MG/4 ML VIAL IV SCH (09:10)
[2020-05-08] MEDS: INSULIN NPH 100 UNIT/ML SUBCUT SCH (09:10)
[2020-05-08] MEDS: PANTOPRAZOLE 40 MG TABLET PO SCH (09:10)
[2020-05-08] MEDS: ISOSORBIDE MONONITRATE 30 MG TABLET PO SCH (09:11)
[2020-05-08] MEDS: MENTHOL/ZINC OXIDE OINT 71 GM JAR TOP SCH (09:11)
[2020-05-08] MEDS: carvediloL 25 MG TABLET PO SCH (09:11)
[2020-05-08] MEDS: GABAPENTIN 100 MG CAPSULE PO SCH (09:12)
[2020-05-08 11:39] LABS: Calcium 8.3 MG/DL (8.5-10.1); Osmolality,Calculated 294.1 MOS/KG (273-304)
[2020-05-08 12:22] VITALS: BP 127/56
== END 2020-05-08 16:25 | disposition home health service (06) | DRG 208 ==
LOC: EDUNIT# → EDBD → N.ED 03:52 → N.EDINP 05:55 → SUATTDRO 05:55 → N.ICU 15:17 → N.TELEN 05-04 15:16
PROVIDERS: ADMIT Internal Medicine; ATTEND Internal Medicine

== ENCOUNTER 2020-05-11 23:56 | Inpatient (IN) ==
[2020-05-12 04:30] LABS: Basophils % 0.1 % (0.0-0.8); Eosinophils % 0.2 % (0.00-10.9); Hematocrit 20.2 VOL% (42.0-52.0); Immature Granulocytes % 8.9 %; Immature Granulocytes Absolute 1.62 #; Lymphocytes # 1.6 10*3/uL (1.4-4.0); Lymphocytes % 8.9 % (21.2-54.2); Mean Corpuscular HGB Conc 34.2 GM/DL (32-36); Mean Corpuscular Volume 78.9 FL (87-102); Mean Platelet Volume 12.6 FL (9.6-12.0); NRBC # 0.03 10*3/uL; Neutrophils % 72.9 % (38.7-73.9); Platelet Count 188 T/CUMM (130-400); Red Blood Count 2.56 MC/CUMM (3.8-5.5); Red Cell Distribution Width 17.3 % (9.3-17.3); White Blood Count 18.3 T/CUMM (4-12)
[2020-05-12 04:31] LABS: Hemoglobin 6.9 GM/DL (14.0-18.0)
[2020-05-12 04:40] LABS: INR 1.4; PT Patient Result 14.5 SECS (9.8-11.9)
[2020-05-12 04:48] LABS: Band Neutrophils 1 % (0-10); Lymphocytes 11 % (20-55); Platelet Estimate Adequate; Segmented Neutrophils 82 % (50-85); Total Cells Counted 100
[2020-05-12 04:49] LABS: Hypochromasia 2+; Microcytosis 1+
[2020-05-12 04:56] LABS: Albumin 2.7 G/DL (3.4-5.0); Bilirubin,Total 1.1 MG/DL (0.2-1.0); Calcium 8.5 MG/DL (8.5-10.1); Ferritin 1830.8 ng/ml (26-388); Osmolality,Calculated 284.4 MOS/KG (273-304); Total Protein 6.5 G/DL (6.4-8.3)
[2020-05-12] MEDS ORDERED: PIPERACILLIN/TAZOBACTAM 3,375 MG in SODIUM CHLORIDE 0.9% 100 ML IV STA (05:36)
[2020-05-12] MEDS ORDERED: ONDANSETRON 4 MG/2 ML VIAL IV PRN (09:11)
[2020-05-12] MEDS ORDERED: DEXTROSE 50% 25 GM/50 ML VIAL IV PRN (09:11)
[2020-05-12] MEDS ORDERED: ACETAMINOPHEN 325 MG TABLET PO PRN (09:11)
[2020-05-12] MEDS ORDERED: GLUCAGON 1 MG VIAL IM PRN (09:11)
[2020-05-12 09:30] LABS: Albumin 2.7 G/DL (3.4-5.0); Bilirubin,Direct 0.45 MG/DL (0.0-0.20); Bilirubin,Indirect 0.6 MG/DL (0.0-1.0); Total Protein 6.5 G/DL (6.4-8.3)
[2020-05-12] MEDS ORDERED: methylPREDNISolone SOD SUC 40 MG/1 ML VIAL IV SCH (09:30)
[2020-05-12] MEDS: HEPARIN 5,000 UNIT/1 ML VIAL SUBCUT SCH ×2 (09:55→20:54)
[2020-05-12 10:06] LABS: Thyroid Stimulating Hormone 1.6 uIU/ml (0.358-3.74)
[2020-05-12] MEDS: INSULIN LISPRO 100 UNIT/ML SUBCUT SCH ×3 (12:41→21:44)
[2020-05-12] MEDS ORDERED: SODIUM CHLORIDE 0.9% 1,000 ML IV PRN (13:21)
[2020-05-12] MEDS ORDERED: FUROSEMIDE 40 MG/4 ML VIAL IV SCH (16:00)
[2020-05-12] MEDS: carvediloL 25 MG TABLET PO SCH (18:19)
[2020-05-12] MEDS: RANOLAZINE 500 MG TABLET PO SCH (20:54)
[2020-05-12] MEDS ORDERED: FUROSEMIDE 40 MG/4 ML VIAL IV ONE (22:40)
[2020-05-13 06:07] LABS: Basophils % 0.2 % (0.0-0.8); Eosinophils # 0.1 10*3/uL (0.0-0.87); Eosinophils % 0.4 % (0.00-10.9); Hematocrit 26.3 VOL% (42.0-52.0); Immature Granulocytes % 5.9 %; Immature Granulocytes Absolute 1.06 #; Lymphocytes # 1.6 10*3/uL (1.4-4.0); Lymphocytes % 8.8 % (21.2-54.2); Mean Corpuscular HGB Conc 34.2 GM/DL (32-36); Mean Corpuscular Volume 80.2 FL (87-102); Mean Platelet Volume 13.2 FL (9.6-12.0); Monocytes % 8.3 % (1.7-12.7); NRBC # 0.04 10*3/uL; Neutrophils % 76.4 % (38.7-73.9); Platelet Count 162 T/CUMM (130-400); Red Blood Count 3.28 MC/CUMM (3.8-5.5); Red Cell Distribution Width 16.7 % (9.3-17.3); White Blood Count 17.9 T/CUMM (4-12)
[2020-05-13 06:26] LABS: Calcium 8.8 MG/DL (8.5-10.1); Osmolality,Calculated 291.7 MOS/KG (273-304)
[2020-05-13 06:36] LABS: Hypochromasia 1+; Lymphocytes 7 % (20-55); Platelet Estimate Adequate; Segmented Neutrophils 87 % (50-85); Total Cells Counted 100
[2020-05-13 06:37] LABS: Microcytosis Slight
[2020-05-13 07:49] VITALS: BP 108/61
[2020-05-13] MEDS: INSULIN LISPRO 100 UNIT/ML SUBCUT SCH (08:37)
[2020-05-13] MEDS: HEPARIN 5,000 UNIT/1 ML VIAL SUBCUT SCH (08:37)
[2020-05-13] MEDS: RANOLAZINE 500 MG TABLET PO SCH (08:37)
[2020-05-13] MEDS: carvediloL 25 MG TABLET PO SCH (08:37)
[2020-05-13] MEDS ORDERED: cilostazoL 50 MG TABLET PO SCH (09:00)
[2020-05-13] MEDS ORDERED: ASPIRIN EC 81 MG TABLET PO SCH (09:00)
[2020-05-13] MEDS ORDERED: ISOSORBIDE MONONITRATE 30 MG TABLET PO SCH (09:00)
== END 2020-05-13 10:15 | disposition hospice, home (50) | DRG 291 ==
LOC: EDBD → EDUNIT# → N.ED 23:56 → N.EDINP 05-12 07:46 → N.5E 05-12 11:33
PROVIDERS: ADMIT Internal Medicine; ATTEND Internal Medicine